=== PATIENT | male | born 1965 | race Caucasian/White ===

== ENCOUNTER → 2022-06-30 16:34 | Outpatient (CLI) | payer OTHER, SELFPAY ==
--- NOTE | 2022-06-30 16:38 | DI.RAD.S_ITS ---
PROCEDURE: XR KUB INDICATIONS: Ureteral calculus TECHNIQUE: One view of the abdomen acquired. COMPARISON: None. FINDINGS: Surgical changes and devices: None. Bowel: Bowel gas pattern is normal. Soft tissues: 9 mm calcification is seen projecting over the inferior pole of the right kidney. Visualized solid organ contours appear normal in size. Bones: No suspicious bony lesions. Mild degenerative changes are seen in the spine. IMPRESSION: Oval 9 mm calcification is seen projecting over the inferior pole of the right kidney. Approved by: Parth Shore M.D. on 06/30/2022 at 17:14
== END ==
PROVIDERS: Referring Provider Urology; Visit Provider Urology
DX: N20.0 Calculus of kidney (principal)
CPT/HCPCS: 74018

== ENCOUNTER → 2022-07-04 10:11 | Outpatient (CLI) | payer OTHER, SELFPAY ==
--- NOTE | 2022-07-04 10:13 | DI.RAD.S_ITS ---
PROCEDURE: XR KUB INDICATIONS: Kidney stone TECHNIQUE: One view of the abdomen acquired. COMPARISON: [facility], CR, XR KUB, 06/30/2022, 16:39. FINDINGS: Surgical changes and devices: None. Bowel: Bowel gas pattern is normal. Soft tissues: There is a 9 mm stone in the inferior pole of the right kidney, unchanged. No definitive ureteral stones. Visualized solid organ contours appear normal in size. Bones: No suspicious bony lesions. IMPRESSION: A 9 mm stone in right kidney. Dictated by: Remington Lemons M.D. on 07/04/2022 at 16:22 Approved by: Remington Lemons M.D. on 07/04/2022 at 16:27
== END ==
PROVIDERS: Referring Provider Urology; Visit Provider Urology
DX: N20.0 Calculus of kidney (principal); R39.9 Unspecified symptoms and signs involving the genitourinary system; R10.32 Left lower quadrant pain; R30.0 Dysuria
CPT/HCPCS: 74018; 81002; 99214

== ENCOUNTER → 2022-07-26 08:30 | Outpatient (CLI) | payer OTHER, SELFPAY ==
[2022-07-29 11:41] LABS: Ca oxalate dihydrate 70 % (.); Ca oxalate monohydr 30 % (.); Size 3x3 mm (.)
== END ==
PROVIDERS: PCP Urology; Visit Provider Urology
DX: N20.2 Calculus of kidney with calculus of ureter (principal); R39.9 Unspecified symptoms and signs involving the genitourinary system
CPT/HCPCS: 81002; 82365; 99214

== ENCOUNTER 2022-08-22 11:12 | Day surgery (SDC) | payer OTHER, SELFPAY ==
[2022-08-21 07:56] VITALS: BMI 38.4
[2022-08-22] VITALS (15 sets, daily range): BP systolic 158–187; BP diastolic 84–109; PULSE 51–76; RESP 11–22; TEMP 36.1–36.4; O2SAT 94–98; BMI 38.4
--- NOTE | 2022-08-22 11:51 | PM.PREOP ---
Pre-operative Note COVID-19 COVID-19 status: Not tested Criteria for continued procedure: Delay expected to result in less-positive ultimate med/surg outcome and Non-surgical alternatives not available or appropriate per current SOC Interval Note History & Physical reviewed/Exam performed by Physician: Yes Changes to H&P: No
[2022-08-22] MEDS: CEFAZOLIN 2 GM/100 ML PREMIX 100 ML IV (12:54)
--- NOTE | 2022-08-22 13:26 | SUR.OPER ---
Lithotomy on padded [facility] bed, head on pillow, arms at side padded with gel. Legs secured in stirrups.
--- NOTE | 2022-08-22 13:51 | PM.OP.1 ---
Procedure & Clinicians Procedure: Right extracorporeal shockwave lithotripsy with right ureteral stent placement Same procedure as scheduled: Yes Indications: This 56-year-old male originally presented with a left ureteral calculus. This is passed he subsequently was discovered to have a large right renal calculus and presents this time for right extracorporeal shockwave lithotripsy and right stent placement. Surgeon: Khoa Miller Click Yes if Unassisted: Yes Anesthesia Type: General Operative Notes Findings: Urethral meatus is normal, urethra is normal along its length with normal mucosa. The sphincter is well coapted. The prostate shows moderate obstructive character with no bulging into the bladder of the right left ureteral orifice in normal position with clear efflux. There were no other abnormalities noted within the bladder. Stone was noted to be in the right renal pelvis a 7 [place]i by multi length stent was left in place without a string in the right collecting system. The stone received 2000 shocks at level 7 and appeared to fragment well there were no other abnormalities or significant findings noted. Closure Type: not applicable Specimen(s): none sent Applied: other (Seven [place]i by multi length ureteral stent left in the right collecting system without a string) Estimated Blood Loss (mL): 0 Blood products transfused: none Procedure in detail: Procedure in detail: After informed consent was obtained, the patient was identified and brought to the operating room he was then placed in the supine position on the Lithotripter were anesthesia was induced to maintained. Ensuring an adequate level of anesthesia the patient was transitioned to the lithotomy position. Once within the lithotomy position the patient was prepped, draped, prepared for Transurethral procedure after prepping draping and ensuring an adequate level of anesthesia and after time-out a 22 [place]i cystoscope was passed through the urethral prostate and into the bladder under direct patient's cystoscopy was performed. The right ureteral orifice was identified and guidewire passed up into the collecting system under fluoroscopic visualization. Stent was then passed over the wire up into the collecting system where it was positioned with fluoroscopic visualization in the bladder under direct vision the wire was removed. The grasping forceps was inserted and the stent was grasped and the nylon harness removed. The stone was then targeted by the imaging system and shockwave delivered at level 7 with periodic reimaging and re localization to ensure maximal energy delivery to the stone at 2000 shocks the stone appeared well fragmented and the shockwave head was rotated out and fluoroscopy performed this confirmed fragmentation of the stone. At this point the patient was awakened having tolerated the procedure well he was transferred to the postanesthesia care unit for recovery. He will be discharged to home straining his urine and saving any fragments to bring back to follow-up. Complications: none Post-operative Condition: stable Disposition: PACU Plan for aftercare: Patient to be discharged to home straining his urine follow-up my office in approximately 14 days with a KUB.
[2022-08-22] MEDS: OXYBUTYNIN 5 MG TABLET PO (14:03)
[2022-08-22] MEDS: ACETAMINOPHEN 325 MG TABLET 650 MG PO (14:03)
[2022-08-22] MEDS: PHENAZOPYRIDINE 100 MG TABLET 200 MG PO (14:03)
[2022-08-22] MEDS: ONDANSETRON 4 MG/2 ML INJ IV (14:21)
[2022-08-22] MEDS: HYDRALAZINE 20 MG/ML VIAL 5 MG IV (14:21)
--- NOTE | 2022-08-22 14:22 | SUR.PHASEI ---
Albert Ybarra [employer]IM TURNING FINISHER at bedside. See orders for BP medication. Goal discharge SBP less than 100.
[2022-08-22] MEDS: fentaNYL 100 MCG/2 ML INJ IV ×2 (14:31→14:38)
--- NOTE | 2022-08-22 14:54 | SUR.PHASEI ---
Jj Ybarra DATA MINER in OR #4 notified of post op shaking. See new order.
[2022-08-22] MEDS: MEPERIDINE 50 MG/ML INJ 12.5 MG IV (15:06)
--- NOTE | 2022-08-22 15:26 | SUR.PHASEI ---
Pt calm and relaxed, shaking stopped and pain is better. it feels like everything has calmed down
[2022-08-22] MEDS: LACTATED RINGERS 1,000 ML 21 ML IV (15:31)
== END 2022-08-22 16:00 | disposition home or self-care (01) ==
PROVIDERS: PCP Physician Assistant; Referring Provider Urology; Visit Provider Urology
PROC: (CPT 50590; principal; 2022-08-22 12:30)
PROC: (CPT 50590; 2022-08-22 12:30)
DX: N20.0 Calculus of kidney (principal); Z87.442 Personal history of urinary calculi; G47.30 Sleep apnea, unspecified
CPT/HCPCS: 50590; 52332; 82962; J0360; J0690; J2175; J2250; J2405; J2704; J3010

== ENCOUNTER → 2022-09-03 10:32 | Outpatient (CLI) | payer OTHER, SELFPAY ==
--- NOTE | 2022-09-03 10:34 | DI.RAD.S_ITS ---
PROCEDURE: XR KUB INDICATIONS: Kidney stone TECHNIQUE: One view of the abdomen acquired. COMPARISON: [facility], CR, XR KUB, 06/30/2022, 16:39. [facility], CR, XR KUB, 07/04/2022, 10:13. FINDINGS: Surgical changes and devices: A right-sided double-J stent is seen. The ends of the stent are seen in the expected locations. Bowel: Bowel gas pattern is normal. Soft tissues: Faintly visualized stone fragments can be seen at the inferior pole of the right kidney that measure up to 8 mm. No stone fragments can be seen along the stent. Bones: No suspicious bony lesions. IMPRESSION: Right-sided ureteral stent, without fragments seen along the stent. Nonobstructing right kidney stone fragments faintly seen that measure up to 8 mm. Dictated by: Gerald Manjarrez M.D. on 09/03/2022 at 11:31 Approved by: Gerald Manjarrez M.D. on 09/03/2022 at 11:32
== END ==
PROVIDERS: PCP Physician Assistant; Referring Provider Urology; Visit Provider Urology
DX: N20.2 Calculus of kidney with calculus of ureter (principal); Z96.0 Presence of urogenital implants
CPT/HCPCS: 74018

== ENCOUNTER → 2022-09-13 12:00 | Outpatient (CLI) | payer OTHER, SELFPAY ==
--- NOTE | 2022-09-13 12:00 | DI.RAD.S_ITS ---
PROCEDURE: XR KUB INDICATIONS: Kidney stone TECHNIQUE: One view of the abdomen acquired. COMPARISON: [facility], CR, XR KUB, 09/03/2022, 10:51. [facility], CR, XR KUB, 07/04/2022, 10:13. FINDINGS: A right ureteral stent is redemonstrated, similar in appearance to before. Small calcifications project over the inferior right kidney, not significantly changed. Bowel gas pattern is nonobstructive. IMPRESSION: A right ureteral stent is redemonstrated, similar in appearance to before. Small calcifications project over the inferior right kidney, not significantly changed. Dictated by: Parth Mckeon M.D. on 09/13/2022 at 16:04 Approved by: Parth Mckeon M.D. on 09/13/2022 at 16:07
== END ==
PROVIDERS: PCP Physician Assistant; Referring Provider Urology; Visit Provider Urology
DX: N20.0 Calculus of kidney (principal); Z96.0 Presence of urogenital implants; Z87.442 Personal history of urinary calculi
CPT/HCPCS: 74018

== ENCOUNTER → 2022-09-18 15:14 | Outpatient (CLI) | payer OTHER, SELFPAY ==
[2022-09-21 23:25] LABS: Ca oxalate monohydr 100 % (.); Size 3x2 mm (.)
== END ==
PROVIDERS: PCP Physician Assistant; Visit Provider Urology
DX: N20.0 Calculus of kidney (principal); N20.1 Calculus of ureter; R39.9 Unspecified symptoms and signs involving the genitourinary system; Z98.890 Other specified postprocedural states; Z87.442 Personal history of urinary calculi
CPT/HCPCS: 82365; 87086

== ENCOUNTER 2022-09-25 07:12 | Inpatient (IN) | payer OTHER, SELFPAY ==
[2022-09-25] VITALS (18 sets, daily range): BP systolic 140–193; BP diastolic 74–108; PULSE 59–82; RESP 16–18; TEMP 36.5–36.9; O2SAT 92–95; BMI 32.5
[2022-09-25] MEDS: HYDROMORPHONE 1 MG INJ IV (07:29)
[2022-09-25 07:32] LABS: Add Manual Diff / Slide Review NO; Basophils Absolute Auto 100 /uL (0-100); Basophils Percent Auto 1.2 % (0-2); Eosinophils Absolute Auto 300 /uL (0-450); Eosinophils Percent Auto 3.6 % (2-4); Hematocrit 38.3 % (41-53); Hemoglobin 12.9 g/dL (13.5-17.5); Lymphocytes Absolute Auto 1600 /uL (1100-4500); Lymphocytes Percent Auto 19.9 % (25-40); Mean Corpuscular HGB Conc 33.7 % (30-36); Mean Corpuscular Hemoglobin 30.1 PG (26-34); Mean Corpuscular Volume 89.4 fL (80-100); Monocytes Absolute Auto 800 /uL (0-900); Monocytes Percent Auto 9.4 % (3-14); Neutrophils Absolute Auto 5300 /uL (1500-7000); Neutrophils Percent Auto 65.9 % (50-75); Platelet Count 290 X10^3/uL (150-400); Red Blood Cell Count 4.29 X10^6/uL (4.5-5.9); Red Cell Distribution Width 13.5 % (11.6-14.8)
--- NOTE | 2022-09-25 07:32 | ED.GENADULT ---
HPI - General Adult General Chief complaint: Urogenital-Male Stated complaint: KIDNEY STONE Time Seen by Provider: 09/25/22 07:16 Source: patient Mode of arrival: Ambulatory Limitations: no limitations History of Present Illness HPI narrative: Patient is a 48-year-old male. Has a known history of multiple kidney stones. Actually has a right-sided ureteral stent that has been in place for the past several weeks. Has being treated by Dr. Miller with Urology. On 2 different occasions he was scheduled to have the stent removed however both times it has been delayed for various issues. The last time it was because there was concern that he had a urinary tract infection. A turned out that he actually had influenza. He is now not scheduled to have it removed for the next couple weeks. Has had continued discomfort and hematuria since having the stent placed however last evening his symptoms became much worse. It is right-sided. He is still urinating. No fevers. Nausea but no vomiting. He states that this has happened to him in the past with previous stents when the stent has become occluded. He is on Pyridium and tamsulosin. Is not currently on antibiotics Related Data Previous Rx's Medication Instructions Recorded tamsulosin 0.4 mg capsule 0.8 mg PO DAILY Lower urinary 07/04/22 tract symptoms #60 caps phenazopyridine 200 mg tablet 200 mg PO TID PRN pain #30 tabs 09/05/22 (Pyridium) Allergies Allergy/AdvReac Type Severity Reaction Status Date / Time No Known Drug Allergies Allergy Verified 09/18/22 14:40 Review of Systems Constitutional Constitutional: Reports system reviewed and no additional complaints, except as documented Cardiovascular Cardiovascular: Reports system reviewed and no additional complaints, except as documented Respiratory Respiratory: Reports system reviewed and no additional complaints, except as documented Gastrointestinal Gastrointestinal: Reports system reviewed and no additional complaints, except as documented Genitourinary Genitourinary: Reports system reviewed and no additional complaints, except as documented Integumentary/Breasts Skin/Breast: Reports system reviewed and no additional complaints, except as documented Hematologic/Lymphatic On Anticoagulants: No Patient History Medical History History of kidney stones Kidney stones Lower urinary tract symptoms Right renal stone Sleep apnea Ureteral calculus Surgical History (Updated 08/21/22 @ 08:20 by Amina Torres RN) History of lithotripsy (2011) History of ureter stent Family History Grandfather Cancer Social History marital status: number of children: 2 household members: spouse Smoking Status: Former smoker alcohol intake: current Type(s) of exercise: walking frequency: 1-2 times per week Smoking Status: Never smoker alcohol intake frequency: holidays/special occasions only Exam Initial Vital Signs Initial Vital Signs: Vital Signs Blood Pressure 193/108 H 09/25/22 07:18 Const General: cooperative HENMT Head: normal to inspection and normocephalic Resp Effort & Inspection: normal respiratory effort Auscultation: clear to auscultation bilaterally Cardio Rate: regular rate Rhythm: regular rhythm GI Inspection: normal to inspection Palpation: No firm and tender Back/Spine/Pelvis Back: CVA tenderness right Skin General: no rashes or lesions noted Neuro General: patient alert, patient awake and moves all extremities Extrem General: capillary refill normal Course Orders Ordered: ED Orders 09/25/22 09:32 Urinalysis and Microscopic Stat Urine Culture Stat 09/25/22 11:21 COVID19 -Nasal RAPID Stat 09/25/22 15:31 Consult to Urology Stat 09/26/22 05:00 BMP [Basic Metabolic Panel] DAILY CBC Auto Diff [Complete Blood Count AUTO DIFF] DAILY 09/27/22 05:00 BMP [Basic Metabolic Panel] DAILY CBC Auto Diff [Complete Blood Count AUTO DIFF] DAILY 09/28/22 05:00 BMP [Basic Metabolic Panel] DAILY CBC Auto Diff [Complete Blood Count AUTO DIFF] DAILY Acetaminophen (Acetaminophen 325 Mg Tablet) 650 mg PO Q6H PRN PRN Reason: Fever/Mild Pain (1-3) Last Admin: 09/25/22 16:23 Dose: 650 mg Documented By: RL Sodium Chloride (Normal Saline 0.9%) 1,000 mls @ 125 mls/hr IV BOLUS ONE Stop: 09/25/22 22:01 Last Admin: 09/25/22 14:17 Dose: 125 mls/hr Documented By: CTS Ceftriaxone Sodium 1,000 mg/ (Sodium Chloride) 100 mls @ 200 mls/hr IV Q24H SAMANTHA Stop: 09/29/22 08:59 Sodium Chloride (Normal Saline 0.9%) 1,000 mls @ 100 mls/hr IV CONT SAMANTHA Stop: 09/26/22 03:44 Influenza Virus Vaccine (Influenza Vaccine Qiv 0.5 Ml Syringe) 0.5 ml IM .ONCE ONE Stop: 09/26/22 15:01 Ketorolac Tromethamine (Ketorolac 30 Mg/Ml Vial) 30 mg IV Q6H [facility] Stop: 09/30/22 15:33 Last Admin: 09/25/22 17:32 Dose: 30 mg Documented By: JACQUELINE Melatonin (Melatonin 3 Mg Tablet) 6 mg PO BEDTIME PRN PRN Reason: Insomnia Naloxone HCl (Naloxone 0.4 Mg/Ml Vial) 0.2 mg IV Q2MIN PRN PRN Reason: Opiate Reversal Phenazopyridine HCl (Phenazopyridine 100 Mg Tablet) 200 mg PO TID PRN PRN Reason: Bladder irritation Polyethylene Glycol (Polyethylene Glycol 3350 17 Gm Powd.Pack) 17 gm PO DAILY PRN PRN Reason: Constipation Sennosides (Sennosides 8.6 Mg Tablet) 8.6 mg PO BID PRN PRN Reason: Constipation Tamsulosin HCl (Tamsulosin 0.4 Mg Capsule) 0.8 mg PO BEDTIME SAMANTHA Discontinued Medications Acetaminophen (Acetaminophen 325 Mg Tablet) 975 mg PO NOW ONE Stop: 09/25/22 15:38 Last Admin: 09/25/22 16:50 Dose: Not Given Documented By: ELTON Hydromorphone HCl (Hydromorphone 1 Mg Inj) 1 mg IV NOW ONE Stop: 09/25/22 07:23 Last Admin: 09/25/22 07:29 Dose: 1 mg Documented By: AT Ceftriaxone Sodium 1,000 mg/ (Sodium Chloride) 100 mls @ 200 mls/hr IV NOW ONE Stop: 09/25/22 11:00 Last Infusion: 09/25/22 11:49 Dose: 0 mls/hr Documented By: Admin: 09/25/22 11:15 Dose: 200 mls/hr Documented By: HARSHA Ketorolac Tromethamine (Ketorolac 30 Mg/Ml Vial) 30 mg IV NOW ONE Stop: 09/25/22 09:00 Last Admin: 09/25/22 09:03 Dose: 30 mg Documented By: HARSHA Phenazopyridine HCl (Phenazopyridine 100 Mg Tablet) 100 mg PO NOW ONE Stop: 09/25/22 13:56 Last Admin: 09/25/22 14:12 Dose: 100 mg Documented By: CTS Vital Signs Vital signs: Vital Signs - 8 hr 09/25/22 11:00 09/25/22 11:30 09/25/22 12:00 Pulse Rate 64 60 70 Pulse Oximetry 94 94 93 09/25/22 12:30 09/25/22 13:00 09/25/22 13:30 Pulse Rate 62 66 74 Pulse Oximetry 93 93 Medical Decision Making Medical Records Medical records reviewed: Yes I reviewed the patient's medical records. Lab Data Lab results reviewed: Yes I reviewed the patient's lab results. 09/25/22 07:20 09/25/22 07:20 Labs: Lab Results 09/25/22 09/25/22 09/25/22 Range/Units 07:20 07:20 07:20 WBC 8.0 (4.5-11.0) X10^3/uL RBC 4.29 L (4.5-5.9) X10^6/uL Hgb 12.9 L (13.5-17.5) g/dL Hct 38.3 L (41-53) % MCV 89.4 (80-100) fL MCH 30.1 (26-34) PG MCHC 33.7 (30-36) % RDW 13.5 (11.6-14.8) % Plt Count 290 (150-400) X10^3/uL Neut % (Auto) 65.9 (50-75) % Lymph % (Auto) 19.9 L (25-40) % [place] % (Auto) 9.4 (3-14) % Eos % (Auto) 3.6 (2-4) % Baso % (Auto) 1.2 (0-2) % Neut # (Auto) 5300 (1248-4145) /uL Lymph # (Auto) 1600 (1716-9607) /uL [place] # (Auto) 800 (0-900) /uL Eos # (Auto) 300 (0-450) /uL Baso # (Auto) 100 (0-100) /uL Sodium 137 (137-145) mmol/L Potassium 3.5 (3.4-5.1) mmol/L Chloride 103 (98-107) mmol/L Carbon Dioxide 29 (22-32) mmol/L BUN 18 (9-20) mg/dL Creatinine 0.98 (0.66-1.25) mg/dL Estimated GFR > 60 (>60) mL/min BUN/Creatinine Ratio 18.4 (6-22) Glucose 104 H (70-100) mg/dL Calcium 8.6 (8.4-10.2) mg/dL Magnesium 2.2 (1.6-2.3) mg/dL Urine Color Urine Appearance Urine pH (4.5-8.0) Ur Specific [place] (1.000-1.035) Urine Protein (Negative) Urine Glucose (UA) (Negative) g/dL Urine Ketones (NEGATIVE) Urine Occult Blood (Negative) Urine Nitrate (Negative) Urine Bilirubin (NEGATIVE) Urine Urobilinogen (0.2) E.U./dL Ur Leukocyte Esterase (NEGATIVE) Urine RBC (0-5/HPF) Urine WBC (0-5/HPF) Amorphous Sediment Urine Bacteria (None) Ur Culture Indicated? SARS-CoV-2 (PCR) (Negative) 09/25/22 09/25/22 Range/Units 09:32 11:21 WBC (4.5-11.0) X10^3/uL RBC (4.5-5.9) X10^6/uL Hgb (13.5-17.5) g/dL Hct (41-53) % MCV (80-100) fL MCH (26-34) PG MCHC (30-36) % RDW (11.6-14.8) % Plt Count (150-400) X10^3/uL Neut % (Auto) (50-75) % Lymph % (Auto) (25-40) % [place] % (Auto) (3-14) % Eos % (Auto) (2-4) % Baso % (Auto) (0-2) % Neut # (Auto) (9815-1121) /uL Lymph # (Auto) (2728-3985) /uL [place] # (Auto) (0-900) /uL Eos # (Auto) (0-450) /uL Baso # (Auto) (0-100) /uL Sodium (137-145) mmol/L Potassium (3.4-5.1) mmol/L Chloride (98-107) mmol/L Carbon Dioxide (22-32) mmol/L BUN (9-20) mg/dL Creatinine (0.66-1.25) mg/dL Estimated GFR (>60) mL/min BUN/Creatinine Ratio (6-22) Glucose (70-100) mg/dL Calcium (8.4-10.2) mg/dL Magnesium (1.6-2.3) mg/dL Urine Color [place] Urine Appearance Cloudy Urine pH 7.0 (4.5-8.0) Ur Specific [place] 1.010 (1.000-1.035) Urine Protein 3+ H (Negative) Urine Glucose (UA) Trace H (Negative) g/dL Urine Ketones Negative (NEGATIVE) Urine Occult Blood 3+ H (Negative) Urine Nitrate Positive H (Negative) Urine Bilirubin Negative (NEGATIVE) Urine Urobilinogen 4.0 H (0.2) E.U./dL Ur Leukocyte Esterase 1+ H (NEGATIVE) Urine RBC 10-30/hpf H (0-5/HPF) Urine WBC 5-10/hpf H (0-5/HPF) Amorphous Sediment 1+ Urine Bacteria Occasional (0-1) (None) Ur Culture Indicated? Specimen cultured SARS-CoV-2 (PCR) Negative (Negative) Imaging Data CT scan - abdomen/pelvis: Radiologist's Impression: PROCEDURE:? CT KIDNEY URETER BLADDER (KUB) ? INDICATIONS:? R ureteral stent with increasing pain ? TECHNIQUE:? Axial sections were acquired from the lung bases to the pubic symphysis.? Coronal and sagittal reformats were performed.? For radiation dose reduction, the following was used: ?automated exposure control, adjustment of mA and/or kV according to patient size.? ? COMPARISON:? None. ? FINDINGS:? Image quality:? Excellent.? ? Lung bases:? 4mm juxtapleural nodule in the right lower lobe, probably intrapulmonary lymph node. Heart:? No significant findings. ? URINARY: Right Kidney:? Right-sided nephroureteral stent terminates in the right renal pelvis and urinary bladder.? There is some mild right-sided pelvocaliectasis.? Small burden of punctate, nonobstructing stones.? No perinephric fat stranding.? Mild periureteral fat stranding. Right Ureter:? No hydroureter.? ? Left Kidney: ? No stones or hydronephrosis. Left Ureter:? No hydroureter.? ? Bladder:? Normal wall thickness. No stones. ? ? ? ABDOMEN: Liver:? Fluid attenuating cysts.? ? Gallbladder:? Unremarkable.? ? Biliary ducts:? Unremarkable.? ? Pancreas:? Unremarkable.? ? Spleen:? Calcified granuloma. Adrenal Glands:? Unremarkable.? ? ? Stomach and Bowel:? Stomach, small bowel loops, and colon are unremarkable.? Peritoneum:? No abnormal intraperitoneal fluid.? No free air.? ? Ventral Wall: ? No hernia.? Abdominal Nodes:? No enlarged retroperitoneal or mesenteric lymph nodes.? Vessels:? Aorta and inferior vena cava are normal in size.? ? PELVIS: Pelvic Organs:? Unremarkable.? ? Pelvic Nodes: Unremarkable. Miscellaneous: No inguinal hernias are seen.? Along the left side of the puborectalis sling, there is a hyperattenuating lesion measuring 1.3 x 1.8 centimeter (). ? Bones:? Unremarkable. ? IMPRESSION:? ? 1. Appropriately positioned right-sided nephroureteral stent.? There is mild right-sided pelvocaliectasis, which may indicate stent obstruction. 2. Small burden of punctate, nonobstructing right-sided renal stones. 3. Along the left side of the puborectalis sling, there is a hyperattenuating lesion measuring 1.3 x 1.8 centimeter (). Findings are an atypical position for a worrisome mass, but further evaluation with nonurgent MRI of the pelvis with contrast to be considered for confirmation and characterization.? MDM Narrative Medical decision making narrative: After pain medications his symptoms have improved. His kidney function is unremarkable. Urinalysis is nitrite positive which is new from prior. He was given antibiotics. Patient is not febrile nor tachycardic. The CT scan does show dilation of the right-sided kidney and given his history and stent placement there is concern about a stent occlusion. I did discuss the case with Dr. Arias on-call for Urology who stated that the patient most likely will need the stent removed and a new 1 placed. There is currently issues with the operating room at this facility and the ability to sterilize instruments. Multiple hours were spent trying to logistically set up whether not the patient could be admitted at this facility are sent to another facility. Dr. Arias strongly recommended that the patient be transferred. I did discuss the case with the Urology Department at [facility] who stated that the patient did not to be transferred to their facility. They recommended a removing his current stent in treating his infection. I did discuss this with Dr. Arias who stated that this would be an appropriate course of action if there was the ability to replace a stent if needed however that was the concern about keeping him here. We then attempted to contact [facility] who have [place], [facility], [facility] in the [facility]. All of these facilities have no beds available for transfer. I once again contacted Dr. Arias to discuss the lack of ability to transfer. It appears that the hospital is able to send the instruments for sterilization which would be available later this evening and definite by tomorrow morning. The plan to be is to admit the patient to the medicine service. If the patient becomes septic this evening or if his symptoms worsen then a more urgent stent removal and replacement will take place. If not this will be done tomorrow morning. I did discuss all this with the patient and his . They expressed understanding. We also discussed the incidental finding of the mass noted on the CT scan today. He expressed understanding of this and will eventually need follow-up with his primary doctor. Discharge Plan Departure Patient Disposition: Admitted As Inpatient Clinical Impression: Urinary tract infection, Occlusion of ureteral stent Admit Date/Time: 09/25/22 16:05 Admit Provider: Carlos Dumas
--- NOTE | 2022-09-25 07:33 | DI.CT.S_ITS ---
PROCEDURE: CT KIDNEY URETER BLADDER (KUB) INDICATIONS: R ureteral stent with increasing pain TECHNIQUE: Axial sections were acquired from the lung bases to the pubic symphysis. Coronal and sagittal reformats were performed. For radiation dose reduction, the following was used: automated exposure control, adjustment of mA and/or kV according to patient size. COMPARISON: None. FINDINGS: Image quality: Excellent. Lung bases: 4mm juxtapleural nodule in the right lower lobe, probably intrapulmonary lymph node. Heart: No significant findings. URINARY: Right Kidney: Right-sided nephroureteral stent terminates in the right renal pelvis and urinary bladder. There is some mild right-sided pelvocaliectasis. Small burden of punctate, nonobstructing stones. No perinephric fat stranding. Mild periureteral fat stranding. Right Ureter: No hydroureter. Left Kidney: No stones or hydronephrosis. Left Ureter: No hydroureter. Bladder: Normal wall thickness. No stones. ABDOMEN: Liver: Fluid attenuating cysts. Gallbladder: Unremarkable. Biliary ducts: Unremarkable. Pancreas: Unremarkable. Spleen: Calcified granuloma. Adrenal Glands: Unremarkable. Stomach and Bowel: Stomach, small bowel loops, and colon are unremarkable. Peritoneum: No abnormal intraperitoneal fluid. No free air. Ventral Wall: No hernia. Abdominal Nodes: No enlarged retroperitoneal or mesenteric lymph nodes. Vessels: Aorta and inferior vena cava are normal in size. PELVIS: Pelvic Organs: Unremarkable. Pelvic Nodes: Unremarkable. Miscellaneous: No inguinal hernias are seen. Along the left side of the puborectalis sling, there is a hyperattenuating lesion measuring 1.3 x 1.8 centimeter (/). Bones: Unremarkable. IMPRESSION: 1. Appropriately positioned right-sided nephroureteral stent. There is mild right-sided pelvocaliectasis, which may indicate stent obstruction. 2. Small burden of punctate, nonobstructing right-sided renal stones. 3. Along the left side of the puborectalis sling, there is a hyperattenuating lesion measuring 1.3 x 1.8 centimeter (/). Findings are an atypical position for a worrisome mass, but further evaluation with nonurgent MRI of the pelvis with contrast to be considered for confirmation and characterization. Dictated by: Gurinder Smallwood M.D. on 09/25/2022 at 8:07 Approved by: Gurinder Smallwood M.D. on 09/25/2022 at 8:18
[2022-09-25 07:50] LABS: BUN Creatinine Ratio 18.4 (6-22); Blood Urea Nitrogen 18 mg/dL (9-20); Calcium 8.6 mg/dL (8.4-10.2); Carbon Dioxide 29 mmol/L (22-32); Chloride 103 mmol/L (98-107); Estimated Glomerular Filt Rate > 60 mL/min (>60); Glucose 104 mg/dL (70-100); HEMOLYSIS < 15 (0-50); Potassium 3.5 mmol/L (3.4-5.1); Sodium 137 mmol/L (137-145)
[2022-09-25] MEDS: KETOROLAC 30 MG/ML VIAL IV ×3 (09:03→22:35)
[2022-09-25 09:43] LABS: Appearance Urine UA CLOUDY; Bilirubin Urine UA NEGATIVE (NEGATIVE); Color Urine UA ORANGE; Glucose Urine UA TRACE g/dL (Negative); Ketones Urine UA NEGATIVE (NEGATIVE); Leukocyte Esterase Urine UA 1+ (NEGATIVE); Nitrite Urine UA POSITIVE (Negative); Occult Blood Urine UA 3+ (Negative); Protein Urine UA 3+ (Negative)
[2022-09-25 09:52] LABS: Amorphous Sediment Urine 1+; Bacteria Urine Occasional (0-1); Culture Indicated Urine Specimen Cultured; RBC Urine 10-30/HPF (0-5/HPF); WBC Urine 5-10/HPF (0-5/HPF)
[2022-09-25] MEDS: cefTRIAXone 1,000 MG in SODIUM CHLORIDE 0.9% 100 ML 200 MG IV (11:15)
[2022-09-25 11:43] LABS: COVID19 -Nasal RAPID Negative (Negative)
[2022-09-25] MEDS: PHENAZOPYRIDINE 100 MG TABLET PO (14:12)
[2022-09-25] MEDS: SODIUM CHLORIDE 0.9% 1,000 ML 125 ML IV (14:17)
--- NOTE | 2022-09-25 15:13 | PC.NURSE ---
called [facility], [facility], [facility] and [facility] all said no, sent over facesheets. waitlisted at [facility].
--- NOTE | 2022-09-25 15:43 | P.HP_ITS ---
History of Present Illness History of Present Illness Date Patient Seen: 09/25/22 Chief complaint: KIDNEY STONE Narrative: Glynn Waddell is a 56yo M with PMH of recurrent kidney stones with current right-sided ureteral stent and recent lithotripsy with Dr. Miller on 08/22/22 who is presenting with right sided flank pain, hematuria, nausea and UTI. Patient has been set to have stent removed as outpatient with Dr. Miller but it kept getting delayed for various reasons. He then developed worsening right flank pain this morning with nausea but no vomiting so came to the ED. Dr. Arias urology consulted in ED and will take for stent removal in AM. UA showed pyuria so started on rocephin. Currently patient's pain is well-controlled with the IV toradol he has received. He denies NV, CP, SOB, abd pain or diarrhea. Patient History Medical History History of kidney stones Kidney stones Lower urinary tract symptoms Right renal stone Sleep apnea Ureteral calculus Surgical History (Updated 08/21/22 @ 08:20 by Amina Torres RN) History of lithotripsy (2011) History of ureter stent Family & Social History Family History Grandfather Cancer Social History: household members spouse Safety & Behavioral: Feels Safe in Current Yes Environment Been Physically Hurt or No Threatened By a Person Tobacco & Substance use: Smoking Status Never smoker alcohol intake frequency holiday/special occasion Meds Home Medications and Allergies Home Medications Medication Instructions Recorded Confirmed Type tamsulosin 0.4 mg capsule 0.8 mg PO DAILY Lower urinary 07/04/22 09/25/22 Rx tract symptoms #60 caps phenazopyridine 200 mg tablet 200 mg PO TID PRN pain #30 tabs 09/05/22 09/25/22 Rx (Pyridium) Allergies Allergy/AdvReac Type Severity Reaction Status Date / Time No Known Drug Allergies Allergy Verified 09/18/22 14:40 Review of Systems Review of Systems Narrative: All other systems reviewed with the patient and are negative unless otherwise stated. Exam Vital Signs (past 8 hours): - 09/25/22 07:49 09/25/22 07:49 09/25/22 07:55 Pulse Rate 66 63 Blood Pressure 165/83 H Pulse Oximetry 93 94 Oxygen Delivery Method 09/25/22 07:55 09/25/22 08:00 09/25/22 08:00 Pulse Rate 59 L Blood Pressure 163/83 H 155/88 H Pulse Oximetry 92 Oxygen Delivery Method Room Air 09/25/22 08:30 09/25/22 08:30 09/25/22 11:00 Pulse Rate 69 64 Blood Pressure 140/74 Pulse Oximetry 93 94 Oxygen Delivery Method Room Air 09/25/22 11:30 09/25/22 12:00 09/25/22 12:30 Pulse Rate 60 70 62 Blood Pressure Pulse Oximetry 94 93 Oxygen Delivery Method 09/25/22 13:00 09/25/22 13:30 Pulse Rate 66 74 Blood Pressure Pulse Oximetry 93 93 Oxygen Delivery Method Oxygen Delivery Method Room Air Narrative Exam Narrative: GEN: no acute distress HEENT: moist mucous membranes, PERRL NECK: trachea midline, no JVD CV: regular rate and rhythm, no murmurs PULM: clear bilaterally ABD: soft, nontender, protuberant, no organomegaly EXT: warm and well perfused with no edema NEURO: awake, alert, oriented, no focal deficits Objective Labs 09/25/22 07:20 09/25/22 07:20 Labs: Laboratory Results - last 24 hr 09/25/22 09/25/22 09/25/22 07:20 07:20 09:32 WBC 8.0 RBC 4.29 L Hgb 12.9 L Hct 38.3 L MCV 89.4 MCH 30.1 MCHC 33.7 RDW 13.5 Plt Count 290 Neut % (Auto) 65.9 Lymph % (Auto) 19.9 L [place] % (Auto) 9.4 Eos % (Auto) 3.6 Baso % (Auto) 1.2 Neut # (Auto) 5300 Lymph # (Auto) 1600 [place] # (Auto) 800 Eos # (Auto) 300 Baso # (Auto) 100 Sodium 137 Potassium 3.5 Chloride 103 Carbon Dioxide 29 BUN 18 Creatinine 0.98 Estimated GFR > 60 BUN/Creatinine Ratio 18.4 Glucose 104 H Calcium 8.6 Urine Color [place] Urine Appearance Cloudy Urine pH 7.0 Ur Specific [place] 1.010 Urine Protein 3+ H Urine Glucose (UA) Trace H Urine Ketones Negative Urine Occult Blood 3+ H Urine Nitrate Positive H Urine Bilirubin Negative Urine Urobilinogen 4.0 H Ur Leukocyte Esterase 1+ H Urine RBC 10-30/hpf H Urine WBC 5-10/hpf H Amorphous Sediment 1+ Urine Bacteria Occasional (0-1) Ur Culture Indicated? Specimen cultured SARS-CoV-2 (PCR) 09/25/22 11:21 WBC RBC Hgb Hct MCV MCH MCHC RDW Plt Count Neut % (Auto) Lymph % (Auto) [place] % (Auto) Eos % (Auto) Baso % (Auto) Neut # (Auto) Lymph # (Auto) [place] # (Auto) Eos # (Auto) Baso # (Auto) Sodium Potassium Chloride Carbon Dioxide BUN Creatinine Estimated GFR BUN/Creatinine Ratio Glucose Calcium Urine Color Urine Appearance Urine pH Ur Specific [place] Urine Protein Urine Glucose (UA) Urine Ketones Urine Occult Blood Urine Nitrate Urine Bilirubin Urine Urobilinogen Ur Leukocyte Esterase Urine RBC Urine WBC Amorphous Sed[place] Urine Bacteria Ur Culture Indicated? SARS-CoV-2 (PCR) Negative Assessment & Plan Assessment & Plan narrative: # UTI in setting of right-sided ureteral stent with possible stent obstruction -CT abd/pelvis shows right stent with pelvocaliectasis suggesting obstruction -Dr. Arias to take to OR on 09/26 for stent removal -UA with pyuria, hematuria -continue rocephin 1g daily -NPO at 10pm -f/u urine culture -continue flomax, toradol and AZO prn # recurrent kidney stones -patient notes kidney stones since age 17 -no hypercalcemic on labs, but will check PTH to rule hyperparathyroidism Code status is full code. COVID negative. DVT prophylaxis with SCDs. Proxy is spouse Samantha. I have reviewed home meds and used all available resources to reconcile the home meds. This patient will be admitted as inpatient and will require greater than 2 midnights of hospital time to treat UTI with right ureteral stent. Time Spent With Patient Critical Care time: I spent a total of [] minutes of critical care time on this patient's care today; this time is exclusive of procedural time.
[2022-09-25] MEDS: ACETAMINOPHEN 325 MG TABLET 650 MG PO (16:23)
[2022-09-25 17:02] LABS: Magnesium 2.2 mg/dL (1.6-2.3)
--- NOTE | 2022-09-25 17:34 | PC.NURSE ---
Pt arrived from ED at 1635, A&Ox4, c/o 3/10 pain to R flank. Lungs CTA, bowel sounds present, CMS intact throughout. Pt and oriented to call light and room.
[2022-09-25] MEDS: TAMSULOSIN 0.4 MG CAPSULE 0.8 MG PO (20:08)
[2022-09-25] MEDS: PHENAZOPYRIDINE 100 MG TABLET 200 MG PO (22:35)
[2022-09-25] MEDS: SODIUM CHLORIDE 0.9% 1,000 ML 100 ML IV (22:36)
[2022-09-26] VITALS (18 sets, daily range): BP systolic 117–169; BP diastolic 56–101; PULSE 18–111; RESP 11–20; TEMP 35.9–37.1; O2SAT 90–97; BMI 37.2
--- NOTE | 2022-09-26 | DI.RAD.S_ITS ---
PROCEDURE: XR ABDOMEN 1V INDICATIONS: CYSTO TECHNIQUE: Intraoperative fluoroscopic images acquired by the Urology service. COMPARISON: [facility], CT, CT KIDNEY URETER BLADDER (KUB), 09/25/2022, 7:35. FINDINGS: Multiple intraoperative fluoroscopic images of the right abdomen demonstrates cannulization of the right ureter and withdrawal of previously seen right ureteral stent. Contrast was injected and demonstrates opacification of the proximal right ureter and right renal pelvis. Mild dilatation. IMPRESSION: Intraoperative fluoroscopic support for retrograde cystography of the right renal collecting system. Please see procedural note for further details. Dictated by: Frantz Gore M.D. on 09/26/2022 at 9:34 Approved by: Frantz Gore M.D. on 09/26/2022 at 9:38
[2022-09-26] MEDS: KETOROLAC 30 MG/ML VIAL IV (05:01)
[2022-09-26 05:29] LABS: Add Manual Diff / Slide Review NO; Basophils Absolute Auto 0 /uL (0-100); Basophils Percent Auto 0.8 % (0-2); Eosinophils Absolute Auto 300 /uL (0-450); Eosinophils Percent Auto 5.1 % (2-4); Hematocrit 33.2 % (41-53); Hemoglobin 11.4 g/dL (13.5-17.5); Lymphocytes Absolute Auto 1200 /uL (1100-4500); Lymphocytes Percent Auto 21.6 % (25-40); Mean Corpuscular HGB Conc 34.3 % (30-36); Mean Corpuscular Hemoglobin 30.8 PG (26-34); Mean Corpuscular Volume 89.6 fL (80-100); Monocytes Absolute Auto 500 /uL (0-900); Monocytes Percent Auto 8.4 % (3-14); Neutrophils Absolute Auto 3600 /uL (1500-7000); Neutrophils Percent Auto 64.1 % (50-75); Platelet Count 249 X10^3/uL (150-400); Red Blood Cell Count 3.71 X10^6/uL (4.5-5.9); Red Cell Distribution Width 13.1 % (11.6-14.8); White Blood Cell Count 5.7 X10^3/uL (4.5-11.0)
[2022-09-26 05:51] LABS: BUN Creatinine Ratio 17.9 (6-22); Blood Urea Nitrogen 17 mg/dL (9-20); Calcium 8.2 mg/dL (8.4-10.2); Carbon Dioxide 28 mmol/L (22-32); Chloride 105 mmol/L (98-107); Estimated Glomerular Filt Rate > 60 mL/min (>60); Glucose 87 mg/dL (70-100); HEMOLYSIS < 15 (0-50); Potassium 3.6 mmol/L (3.4-5.1); Sodium 136 mmol/L (137-145)
--- NOTE | 2022-09-26 06:38 | PC.NURSE ---
Pt off floor at this time to OR.
[2022-09-26] MEDS: LACTATED RINGERS 1,000 ML 42 ML IV ×2 (06:50→09:36)
--- NOTE | 2022-09-26 06:55 | SUR.PREOP ---
Report received from JIM Diaz. Pt transferred to preop holding in bed. Glasses with pt.
--- NOTE | 2022-09-26 07:24 | PM.CN ---
History of Present Illness Consult details Date Patient Seen: 09/26/22 Time Patient Seen: 07:15 Chief complaint: KIDNEY STONE Reason for consult: UTI right pyelonephritis. Narrative: Glynn is a 56-year-old male who presented to the [facility] ED with complaint of malaise, right flank pain and dysuria. He is status post uncomplicated right ESWL with placement of right ureteral stent by Dr. Khoa Miller on 08/22/2022. He was seen in the Urology Clinic on 09/18/2022. He did have some complaints of dysuria. Urine culture showed no growth. Stent removal was postponed at that time due to concern for possible developing UTI. The patient has had serial KUB imaging preop and postoperatively in has demonstrated clearance of most of the stone burden. CT KUB 09/25/2022 demonstrated right pyelocaliectasis with a few punctate remaining nonobstructing calculi. The radiologist review as well as my own shows no significant concern for stones along the length of the stent. Urinalysis is nitrite positive with occasional bacteria and culture is pending. Due to current situation with sterilization of endoscopic and open surgical equipment, necessary endoscopic equipment was sent out side for sterilization. Meds Home Medications and Allergies Home Medications Medication Instructions Recorded Confirmed Type tamsulosin 0.4 mg capsule 0.8 mg PO DAILY Lower urinary 07/04/22 09/25/22 Rx tract symptoms #60 caps phenazopyridine 200 mg tablet 200 mg PO TID PRN pain #30 tabs 09/05/22 09/25/22 Rx (Pyridium) Allergies Allergy/AdvReac Type Severity Reaction Status Date / Time No Known Drug Allergies Allergy Verified 09/18/22 14:40 Review of Systems Review of Systems ROS: Yes All systems reviewed with the patient and are negative except as otherwise documented Exam Vital Signs (past 8 hours): - 09/26/22 05:05 09/26/22 06:43 Temperature 97.5 F L 98.1 F Pulse Rate 64 78 Respiratory Rate 18 16 Blood Pressure 136/77 160/90 H Pulse Oximetry 94 95 Oxygen Delivery Method Room Air Oxygen Flow Rate 0 Oxygen Delivery Method Room Air Oxygen Flow Rate 0 Narrative Exam Narrative: Well-developed, moderately over nourished middle-aged adult male in no acute distress well-developed, moderately over nourished middle-aged white male in no current distress. Head/neck-sclera clear pupils are round and equal. Chest-equal and unlabored expansion bilaterally. Heart normal sinus rhythm. Objective Labs 09/26/22 04:47 09/26/22 04:47 Labs: Laboratory Results - last 24 hr 09/25/22 09/25/22 09/25/22 07:20 07:20 07:20 WBC 8.0 RBC 4.29 L Hgb 12.9 L Hct 38.3 L MCV 89.4 MCH 30.1 MCHC 33.7 RDW 13.5 Plt Count 290 Neut % (Auto) 65.9 Lymph % (Auto) 19.9 L [place] % (Auto) 9.4 Eos % (Auto) 3.6 Baso % (Auto) 1.2 Neut # (Auto) 5300 Lymph # (Auto) 1600 [place] # (Auto) 800 Eos # (Auto) 300 Baso # (Auto) 100 Sodium 137 Potassium 3.5 Chloride 103 Carbon Dioxide 29 BUN 18 Creatinine 0.98 Estimated GFR > 60 BUN/Creatinine Ratio 18.4 Glucose 104 H Calcium 8.6 Magnesium 2.2 Urine Color Urine Appearance Urine pH Ur Specific [place] Urine Protein Urine Glucose (UA) Urine Ketones Urine Occult Blood Urine Nitrate Urine Bilirubin Urine Urobilinogen Ur Leukocyte Esterase Urine RBC Urine WBC Amorphous [place] Urine Bacteria Ur Culture Indicated? SARS-CoV-2 (PCR) 09/25/22 09/25/22 09/26/22 09:32 11:21 04:47 WBC 5.7 RBC 3.71 L Hgb 11.4 L Hct 33.2 L MCV 89.6 MCH 30.8 MCHC 34.3 RDW 13.1 Plt Count 249 Neut % (Auto) 64.1 Lymph % (Auto) 21.6 L [place] % (Auto) 8.4 Eos % (Auto) 5.1 H Baso % (Auto) 0.8 Neut # (Auto) 3600 Lymph # (Auto) 1200 [place] # (Auto) 500 Eos # (Auto) 300 Baso # (Auto) 0 Sodium Potassium Chloride Carbon Dioxide BUN Creatinine Estimated GFR BUN/Creatinine Ratio Glucose Calcium Magnesium Urine Color [place] Urine Appearance Cloudy Urine pH 7.0 Ur Specific [place] 1.010 Urine Protein 3+ H Urine Glucose (UA) Trace H Urine Ketones Negative Urine Occult Blood 3+ H Urine Nitrate Positive H Urine Bilirubin Negative Urine Urobilinogen 4.0 H Ur Leukocyte Esterase 1+ H Urine RBC 10-30/hpf H Urine WBC 5-10/hpf H Amorphous Sediment 1+ Urine Bacteria Occasional (0-1) Ur Culture Indicated? Specimen cultured SARS-CoV-2 (PCR) Negative 09/26/22 04:47 WBC RBC Hgb Hct MCV MCH MCHC RDW Plt Count Neut % (Auto) Lymph % (Auto) [place] % (Auto) Eos % (Auto) Baso % (Auto) Neut # (Auto) Lymph # (Auto) [place] # (Auto) Eos # (Auto) Baso # (Auto) Sodium 136 L Potassium 3.6 Chloride 105 Carbon Dioxide 28 BUN 17 Creatinine 0.95 Estimated GFR > 60 BUN/Creatinine Ratio 17.9 Glucose 87 Calcium 8.2 L Magnesium Urine Color Urine Appearance Urine pH Ur Specific [place] Urine Protein Urine Glucose (UA) Urine Ketones Urine Occult Blood Urine Nitrate Urine Bilirubin Urine Urobilinogen Ur Leukocyte Esterase Urine RBC Urine WBC Amorphous [place] Urine Bacteria Ur Culture Indicated? SARS-CoV-2 (PCR) [facility] Medical History History of kidney stones Kidney stones Lower urinary tract symptoms Right renal stone Sleep apnea Ureteral calculus Surgical History History of lithotripsy (2011) History of ureter stent Family History Grandfather Cancer Social History marital status: number of children: 2 household members: spouse Tobacco & Substance Use Smoking Status: Former smoker alcohol intake: former Diet and Exercise Type(s) of exercise: walking frequency: 1-2 times per week Assessment & Plan Assessment & Plan narrative: Assessment: 1. Retained right ureteral stent. 2. Status post right extracorporeal shockwave lithotripsy. 3. UTI/right pyelonephritis. Plan: 1. Discussion and informed consent for cystoscopy, dilation of right ureterovesical junction, and right stent removal. Other options including right ureteral stent exchange was discussed given current challenges with having sterilized equipment readily available. My opinion assured with the patient is that with distal ureterovesical junction dilation any apparent residual fragments appears though they will readily pass rather than reintroduce a foreign body. 2. Await final urine culture and transition patient to appropriate oral prior to discharge. 3. Follow-up in the Urology Clinic with Dr. Miller at earliest available visit with SHARON following discharge. Time Spent With Patient Critical Care time: I spent a total of [] minutes of critical care time on this patient's care today; this time is exclusive of procedural time.
--- NOTE | 2022-09-26 07:49 | PM.PREOP ---
Pre-operative Note COVID-19 Criteria for continued procedure: Expected advancement of disease process, Possibility delay results in more complex future surgery or treatment, Continuing or worsening of significant or severe pain, Deterioration of the patient's condition or overall health, Delay expected to result in less-positive ultimate med/surg outcome and Non-surgical alternatives not available or appropriate per current SOC Interval Note History & Physical reviewed/Exam performed by Physician: Yes Changes to H&P: No
--- NOTE | 2022-09-26 08:06 | SUR.OPER ---
Lithotomy on padded OR bed, head on pillow, arms secured on padded arm boards at <90 degrees abduction. Legs secured in padded yellow fins stirrups. Pt positioned per direction and supervision of Dr Arias.
[2022-09-26] MEDS: IOPAMIDOL 30 ML VIAL INJ (08:12)
[2022-09-26] MEDS: ONDANSETRON 4 MG/2 ML INJ IV (09:10)
--- NOTE | 2022-09-26 09:10 | P.OP_ITS ---
Operative Date/Time/Diagnoses Date of procedure: 09/26/22 Time of procedure: 09:10 Pre-op diagnosis: 1. Retained and obstructed right ureteral stent. 2. UTI/right pyelonephritis. 3. Severe right renal colic. Post-op diagnosis: same Procedure & Clinicians Procedure: 1. Cystoscopy/removal right ureteral stent (22 modifier should be applied to this code due to complexity of procedure and length of time greater than 50% of expected). 2. Cystoscopy/right retrograde pyelogram. 3. Cystoscopy/right ureteral dilation. Same procedure as scheduled: Yes Indications: 1. Retained and obstructed right ureteral stent. 2. UTI/right pyelonephritis. 3. Severe right renal colic. Surgeon: Med Arias Click Yes if Unassisted: Yes Anesthesia Type: General Operative Notes Findings: 1. Urethra-normal caliber without annular stricture or lesion. 2. External sphincter coapted with normal overlying urothelium. 3. Prostate 4.5+ cm length with moderately obstructing lateral lobes and elevate d median bar. 4. Bladder-adequate visualization is compromised due to use of Pyridium. There was expected edema and erythema surrounding the right ureteral orifice. The indwelling right ureteral stent was encrusted with numerous adherent deposits evident. 5. Right ureter-per manipulation, dilation, and removal of the retained right ureteral stent there were numerous calcific fragments within the obstructive efflux and within clot from the obstructive efflux. 6. Numerous intraoperative still shots and cine imaging were obtained depicting events during the course of the operation. Closure Type: not applicable Specimen(s): other (Stone fragments from right ureter and kidney.) Estimated Blood Loss (mL): 3 Blood products transfused: none Procedure in detail: Patient was positioned in supine was administered general anesthesia. He was then repositioned semi-lithotomy the lower abdomen, genitalia, and groin were then prepped and draped in sterile fashion. The 22 Portuguese barrientos endoscope was then passed the lower urinary tract with the findings as described above. A foreign body grasper was then used to engage the distal coil was stent and both the stent and the scope were then withdrawn outside of the urethral meatus. Further attempts to withdraw the indwelling stent were met with resistance. Fluoroscopic imaging indicated a tight partial coil at the proximal end. Next, a 0.35 hybrid guidewire was advanced into the lumen of the retained stent and attempts to pass the wire through the lumen in an attempt to straighten the coil were unsuccessful due to luminal obstruction. A 0.35 hybrid guidewire was then advanced alongside the existing retained stent and advanced proximally. Multiple attempts to advance the wire proximal to the tight coil were unsuccessful. A 5 [place] pollock catheter was then advanced over the hybrid wire and under fluoroscopic guidance was advanced proximally. Again under fluoroscopic guidance attempts to advance the [place] catheter and the hybrid guidewire within were unsuccessful. An angled 0.35 hybrid guidewire was then selected and with persistent careful manipulation the wire was finally able to be advanced proximally and coiled in the superior pole of the right kidney. The 5 [place] pollock catheter was then advanced under fluoroscopic guidance proximally as well. Unfortunately the coil did not straighten adequately at this time. Five [place] pollock catheter was then withdrawn off the hybrid guidewire now the 15 [place] 6 cm balloon dilating catheter was advanced over the hybrid guidewire under fluoroscopic guidance and was positioned so that it straddled the area the coil. The balloon was inflated to 18 [place] for 5 minutes after which it was deflated and withdrawn a bit distal to the coil now the balloon was partially inflated and again was advanced over the wire under direct visualization and attempt to straighten or move the coil both proximally. Indeed there was evidence of partial straightening of the tight coil. Under fluoroscopic guidance another attempt to gently remove the retained stent was successful and the retained stent was removed in its entirety and discarded. Next, the balloon dilating catheter was brought distally and positioned across the right ureterovesical junction. The balloon was inflated to 18 atmospheres for 5 minutes. The findings are described in the above description of findings. The balloon dilating catheter was then deflated on both the wire and the balloon dilating catheter were removed. The bladder was then partially filled on 2 occasions to remove retained clot. The bladder was drained a final time before the endoscope was removed a final time. The patient was then repositioned in supine, was awakened, transferred to [facility], then transported recovery in stable condition. Complications: none Post-operative Condition: stable Disposition: PACU Plan for aftercare: Admit to hospitalist service.
[2022-09-26] MEDS: HYDROMORPHONE 2 MG INJ IV ×8 (09:11→09:57)
[2022-09-26] MEDS: FUROSEMIDE 20 MG/2 ML VIAL IV (09:18)
[2022-09-26] MEDS: OXYCODONE IR 5 MG TABLET PO ×2 (09:25→17:35)
[2022-09-26] MEDS: hydrOXYzine 50 MG/ML INJ 25 MG IM (09:51)
[2022-09-26] MEDS: METOCLOPRAMIDE 10 MG/2 ML INJ IV (10:38)
[2022-09-26] MEDS: MORPHINE 2 MG/ML INJ IV ×2 (10:38→14:13)
--- NOTE | 2022-09-26 13:18 | PM.DS.1 ---
History of Present Illness History of Present Illness Date Patient Seen: 09/26/22 Time Patient Seen: 13:18 Chief complaint: KIDNEY STONE Narrative: Glynn Waddell is a 56yo M with PMH of recurrent kidney stones with current right-sided ureteral stent and recent lithotripsy with Dr. Miller on 08/22/22 who is presenting with right sided flank pain, hematuria, nausea and UTI. Patient has been set to have stent removed as outpatient with Dr. Miller but it kept getting delayed for various reasons. He then developed worsening right flank pain this morning with nausea but no vomiting so came to the ED. Dr. Arias urology consulted in ED and will take for stent removal in AM. UA showed pyuria so started on rocephin. Currently patient's pain is well-controlled with the IV toradol he has received. He denies NV, CP, SOB, abd pain or diarrhea. Discharge Providers Provider Date of admission: 09/25/22 16:05 Discharge Date: 09/26/22 Primary care physician: Ana Ponce PA-C Consults: 09/25/22 15:31 Consult to Urology Stat Comment: Consulting Provider: Med Arias Reason for consultation: stent removal Has provider been notified: Yes Discharge provider: Carlos Dumas DO Summary Hospital Course Discharge Diagnosis: # UTI in setting of right-sided ureteral stent with possible stent obstruction -CT abd/pelvis shows right stent with pelvocaliectasis suggesting obstruction -Dr. Arias to take to OR on 09/26 for stent removal -UA with pyuria, hematuria -continue rocephin 1g daily -NPO at 10pm -f/u urine culture -continue flomax, toradol and AZO prn # recurrent kidney stones -patient notes kidney stones since age 17 -no hypercalcemic on labs, but will check PTH to rule hyperparathyroidism Time Spent with Patient Time spent: Greater than 30 minutes Exam Vital Signs (past 8 hours): - 09/26/22 06:43 09/26/22 08:48 09/26/22 08:51 Temperature 98.1 F 98.8 F Pulse Rate 78 79 79 Respiratory Rate 16 15 12 Blood Pressure 160/90 H 155/82 H 164/92 H Pulse Oximetry 95 90 L 94 Oxygen Delivery Method Room Air Room Air Simple Mask Simple Mask Oxygen Flow Rate 10 14 09/26/22 10:00 09/26/22 10:12 09/26/22 10:15 Temperature 98.1 F 96.6 F L Pulse Rate 61 64 63 Respiratory Rate 15 14 16 Blood Pressure 161/97 H 152/89 H 168/81 H Pulse Oximetry 97 97 94 Oxygen Delivery Method Nasal Cannula Nasal Cannula Oxygen Flow Rate 3 3 0 09/26/22 10:45 09/26/22 08:58 09/26/22 09:13 Temperature 96.6 F L 97.8 F Pulse Rate 82 105 H 65 Respiratory Rate 17 14 11 L Blood Pressure 149/84 H 169/101 H 146/87 H Pulse Oximetry 92 93 97 Oxygen Delivery Method Simple Mask Nasal Cannula Oxygen Flow Rate 0 3 09/26/22 09:33 09/26/22 12:00 09/26/22 11:15 Temperature 96.9 F L 97.5 F L Pulse Rate 61 60 60 Respiratory Rate 16 17 18 Blood Pressure 167/91 H 146/73 H 146/73 H Pulse Oximetry 97 93 92 Oxygen Delivery Method Nasal Cannula Oxygen Flow Rate 3 0 0 09/26/22 12:15 Temperature 97.5 F L Pulse Rate 111 H Respiratory Rate 18 Blood Pressure 134/75 Pulse Oximetry 92 Oxygen Delivery Method Oxygen Flow Rate 0 Oxygen Delivery Method Nasal Cannula Oxygen Flow Rate 0 Narrative Exam Narrative: GEN: no acute distress HEENT: moist mucous membranes, PERRL NECK: trachea midline, no JVD CV: regular rate and rhythm, no murmurs PULM: clear bilaterally ABD: soft, nontender, protuberant, no organomegaly EXT: warm and well perfused with no edema NEURO: awake, alert, oriented, no focal deficits Objective Labs 09/26/22 04:47 09/26/22 04:47 Labs: Laboratory Results - last 24 hr 09/25/22 09/26/22 09/26/22 07:20 04:47 04:47 WBC 5.7 RBC 3.71 L Hgb 11.4 L Hct 33.2 L MCV 89.6 MCH 30.8 MCHC 34.3 RDW 13.1 Plt Count 249 Neut % (Auto) 64.1 Lymph % (Auto) 21.6 L [place] % (Auto) 8.4 Eos % (Auto) 5.1 H Baso % (Auto) 0.8 Neut # (Auto) 3600 Lymph # (Auto) 1200 [place] # (Auto) 500 Eos # (Auto) 300 Baso # (Auto) 0 Sodium 136 L Potassium 3.6 Chloride 105 Carbon Dioxide 28 BUN 17 Creatinine 0.95 Estimated GFR > 60 BUN/Creatinine Ratio 17.9 Glucose 87 Calcium 8.2 L Magnesium 2.2 PFSH Medical History History of kidney stones Kidney stones Lower urinary tract symptoms Right renal stone Sleep apnea Ureteral calculus Surgical History History of lithotripsy (2011) History of ureter stent Family History Grandfather Cancer Social History marital status: number of children: 2 household members: spouse Smoking Status: Former smoker alcohol intake: former Type(s) of exercise: walking frequency: 1-2 times per week Discharge Plan Discharge Plan Patient Disposition: Home Discharge orders & Medications Prescriptions: New oxycodone 5 mg Tablet 5 mg PO Q4HR PRN (Reason: Pain, Moderate (4-6)) Qty: 10 0RF ondansetron 4 mg tablet,disintegrating 4 mg PO Q6H PRN (Reason: nausea and vomiting) Qty: 20 0RF Continued tamsulosin 0.4 mg capsule 0.8 mg PO DAILY Qty: 60 12RF phenazopyridine [Pyridium] 200 mg tablet 200 mg PO TID PRN (Reason: pain) Qty: 30 1RF Follow up/Referrals: Ana Ponce PA-C [Primary Care Provider] - 2 Weeks Khoa Miller MD [Physician] - 1 Week Visit Report/Discharge Packet Stand Alone Forms: Patient Portal/API, Stroke Signs & Symptoms Discharge Data Primary Care Provider: Ana Ponce Quality VTE Deep Vein Thrombosis/Pulmonary Embolism Present on Admission: No
--- NOTE | 2022-09-26 13:34 | PM.PN.1 ---
Subjective Subjective Interval history: Patient having penile pain and NV following stent removal this morning. Also some pain in his low right back which is new. Exam Vital Signs (past 8 hours): - 09/26/22 06:43 09/26/22 08:48 09/26/22 08:51 Temperature 98.1 F 98.8 F Pulse Rate 78 79 79 Respiratory Rate 16 15 12 Blood Pressure 160/90 H 155/82 H 164/92 H Pulse Oximetry 95 90 L 94 Oxygen Delivery Method Room Air Room Air Simple Mask Simple Mask Oxygen Flow Rate 10 14 09/26/22 10:00 09/26/22 10:12 09/26/22 10:15 Temperature 98.1 F 96.6 F L Pulse Rate 61 64 63 Respiratory Rate 15 14 16 Blood Pressure 161/97 H 152/89 H 168/81 H Pulse Oximetry 97 97 94 Oxygen Delivery Method Nasal Cannula Nasal Cannula Oxygen Flow Rate 3 3 0 09/26/22 10:45 09/26/22 08:58 09/26/22 09:13 Temperature 96.6 F L 97.8 F Pulse Rate 82 105 H 65 Respiratory Rate 17 14 11 L Blood Pressure 149/84 H 169/101 H 146/87 H Pulse Oximetry 92 93 97 Oxygen Delivery Method Simple Mask Nasal Cannula Oxygen Flow Rate 0 3 09/26/22 09:33 09/26/22 12:00 09/26/22 11:15 Temperature 96.9 F L 97.5 F L Pulse Rate 61 60 60 Respiratory Rate 16 17 18 Blood Pressure 167/91 H 146/73 H 146/73 H Pulse Oximetry 97 93 92 Oxygen Delivery Method Nasal Cannula Oxygen Flow Rate 3 0 0 09/26/22 12:15 Temperature 97.5 F L Pulse Rate 111 H Respiratory Rate 18 Blood Pressure 134/75 Pulse Oximetry 92 Oxygen Delivery Method Oxygen Flow Rate 0 Oxygen Delivery Method Nasal Cannula Oxygen Flow Rate 0 Narrative Exam Narrative: GEN: pale, appears in pain HEENT: moist mucous membranes, PERRL NECK: trachea midline, no JVD CV: regular rate and rhythm, no murmurs PULM: clear bilaterally BACK: tenderness to palpation of right low back ABD: soft, nontender, protuberant, no organomegaly EXT: warm and well perfused with no edema NEURO: awake, alert, oriented, no focal deficits Objective Labs 09/26/22 04:47 09/26/22 04:47 Labs: Laboratory Results - last 24 hr 09/25/22 09/26/22 09/26/22 07:20 04:47 04:47 WBC 5.7 RBC 3.71 L Hgb 11.4 L Hct 33.2 L MCV 89.6 MCH 30.8 MCHC 34.3 RDW 13.1 Plt Count 249 Neut % (Auto) 64.1 Lymph % (Auto) 21.6 L [place] % (Auto) 8.4 Eos % (Auto) 5.1 H Baso % (Auto) 0.8 Neut # (Auto) 3600 Lymph # (Auto) 1200 [place] # (Auto) 500 Eos # (Auto) 300 Baso # (Auto) 0 Sodium 136 L Potassium 3.6 Chloride 105 Carbon Dioxide 28 BUN 17 Creatinine 0.95 Estimated GFR > 60 BUN/Creatinine Ratio 17.9 Glucose 87 Calcium 8.2 L Magnesium 2.2 PFSH Medical History History of kidney stones Kidney stones Lower urinary tract symptoms Right renal stone Sleep apnea Ureteral calculus Surgical History History of lithotripsy (2011) History of ureter stent Family History Grandfather Cancer Social History marital status: number of children: 2 household members: spouse Smoking Status: Former smoker alcohol intake: former Type(s) of exercise: walking frequency: 1-2 times per week Assessment & Plan Assessment & Plan narrative: # right-sided ureteral stent with obstruction -CT abd/pelvis shows right stent with pelvocaliectasis suggesting obstruction -Dr. Arias took to OR on 09/26 for stent removal which was caked in sediment -urine culture neg, stopped abx -continue morphine, zofran and reglan PRN # recurrent kidney stones -patient notes kidney stones since age 17 -no hypercalcemic on labs, but will check PTH to rule hyperparathyroidism Code status is full code. COVID negative. DVT prophylaxis with SCDs. Proxy is spouse Samantha. Dispo: Home on 09/27. Time Spent With Patient Critical Care time: I spent a total of [] minutes of critical care time on this patient's care today; this time is exclusive of procedural time. Quality VTE Deep Vein Thrombosis/Pulmonary Embolism Present on Admission: No
--- NOTE | 2022-09-26 14:16 | CM.DANOTE ---
Patient is a 56 yo male who was admitted on 09/25/22 for Kidney Stone. Pt has [employer] for insurance and his PCP is Ana Ponce. EMR was reviewed. Per MD, pt recently had stent placement by Urologist for recurrent kidney stones and was to have stent removed outpt but was rescheduled and then pt began having increased pain and discomfort. Urologist did stent removal in the OR with sediment surrounding and anticipated possible discharge today. Per MD, pt with some ongoing pain and n/v since stent removal and not yet medically stable for d/c yet today but anticipate likely tomorrow. SW met briefly bedside with pt and explained role and he confirms he lives with his spouse in [place] and is independent at baseline and works and drives. Pt states he has been getting kidney stones since age 17. Pt denies any hx of HH or SNF and does not anticipate any needs at d/c and preference is home via spouse POV tomorrow if stable. Plan: SW to follow for plan of likely d/c home with spouse assist tomorrow if medically stable and to follow for any further identified discharge planning needs. DG Moralez Discharge Planning/Care Management CM Discharge Assessment Start: 09/26/22 14:11 Freq: Status: Active Protocol: Document 09/26/22 14:11 BF (Rec: 09/26/22 14:16 BF [id number]) Discharge Planning Assessment Assigned Store Detective DG Roth DPOA/Assigned Designee Name spouse Samantha Contact Information [phone] Advance Directives? No Advance Directives on File No History Provided By Patient,Medical Record Has Patient been admitted in last 30 No days? Prior Living Arrangements House Household Members spouse Type of transporation used prior to Drives own vehicle admit Independent with ADL's Yes Is patient alert and oriented? Yes Caregiver for Another No Barriers to Discharge No Discharge Plan Home Transportation Arrangement Spouse to transport Referrals Initiated None needed Whiteboard Updated in Patient Room with Yes name and ext. # of Store Detective Review Status In Process Please Provide Date Initial DC 09/26/22 Assessment Was Performed Next Review Type Continued Stay Review
[2022-09-26] MEDS: ACETAMINOPHEN 325 MG TABLET 650 MG PO (17:34)
[2022-09-26] MEDS: OXYCODONE IR 10 MG TABLET PO (21:48)
[2022-09-27 01:55] VITALS: BP 114/65; PULSE 58; RESP 20; TEMP 36.1; O2SAT 91
[2022-09-27] MEDS: ACETAMINOPHEN 325 MG TABLET 650 MG PO ×2 (06:15→15:45)
[2022-09-27] MEDS: OXYCODONE IR 10 MG TABLET PO ×2 (06:16→15:06)
[2022-09-27 06:27] LABS: Add Manual Diff / Slide Review NO; Basophils Absolute Auto 0 /uL (0-100); Basophils Percent Auto 0.1 % (0-2); Eosinophils Absolute Auto 0 /uL (0-450); Hematocrit 33.9 % (41-53); Hemoglobin 11.5 g/dL (13.5-17.5); Lymphocytes Absolute Auto 900 /uL (1100-4500); Lymphocytes Percent Auto 4.7 % (25-40); Mean Corpuscular HGB Conc 33.8 % (30-36); Mean Corpuscular Hemoglobin 30.2 PG (26-34); Mean Corpuscular Volume 89.4 fL (80-100); Monocytes Absolute Auto 700 /uL (0-900); Monocytes Percent Auto 3.8 % (3-14); Neutrophils Absolute Auto 16900 /uL (1500-7000); Neutrophils Percent Auto 91.4 % (50-75); Platelet Count 315 X10^3/uL (150-400); Red Blood Cell Count 3.79 X10^6/uL (4.5-5.9); Red Cell Distribution Width 13.4 % (11.6-14.8); White Blood Cell Count 18.5 X10^3/uL (4.5-11.0)
[2022-09-27 06:57] LABS: BUN Creatinine Ratio 13.2 (6-22); Blood Urea Nitrogen 20 mg/dL (9-20); Calcium 8.9 mg/dL (8.4-10.2); Carbon Dioxide 25 mmol/L (22-32); Chloride 101 mmol/L (98-107); Estimated Glomerular Filt Rate 53 mL/min (>60); Glucose 125 mg/dL (70-100); HEMOLYSIS < 15 (0-50); Sodium 135 mmol/L (137-145)
--- NOTE | 2022-09-27 08:02 | DI.US.S_ITS ---
PROCEDURE: US RENAL COMPLETE INDICATIONS: s/p stent removal now w/ flank pain, HEBERT TECHNIQUE: Real-time scanning was performed of the kidneys and bladder, with image documentation. COMPARISON: None. FINDINGS: Kidneys: Kidneys are normal in size. Right kidney measures 12.1 cm long; left kidney measures 10.0 cm long. Right renal cortical thickness is 1.4 cm; left renal cortical thickness is 2.0 cm. 1.5 cm stone is seen in midpole of right kidney. Additional tiny punctate calcifications are seen in upper and lower pole of right kidney. Mild right-sided hydronephrosis is seen. No left-sided hydronephrosis. Multiple punctate left renal calculi are seen. No solid appearing renal lesion. Bladder: Pre-void bladder volume is 67.7 mL. Pre-void images demonstrate no intraluminal masses or stones. On pre-void images, bilateral ureteral jets are noted with color Doppler interrogation. (Of note, ureteral jets may not be detectable in up to 25% of cases due to insufficient differences in specific gravity between ureteral and bladder urine). Miscellaneous: No free pelvic fluid. IMPRESSION: 1. Bilateral renal calculi as described above. Mild right-sided hydronephrosis. No solid appearing renal lesion. No left-sided hydronephrosis. 2. No gross abnormality is seen in partially distended urinary bladder. Dictated by: Benjamin Duarte M.D. on 09/27/2022 at 11:14 Approved by: Benjamin Duarte M.D. on 09/27/2022 at 11:20
[2022-09-27 09:00] VITALS: BP 123/72; PULSE 63; RESP 16; TEMP 37.2; O2SAT 95
[2022-09-27] MEDS: polyethylene glycoL 3350 17 GM POWD.PACK PO (09:03)
--- NOTE | 2022-09-27 10:25 | DI.RAD.S_ITS ---
PROCEDURE: XR CHEST 1V INDICATIONS: pleuritic pain TECHNIQUE: One view of the chest was acquired. COMPARISON: None. FINDINGS: Surgical changes and devices: None. Lungs and pleura: Lungs are clear. No pleural effusions or pneumothorax. Mediastinum: Mediastinal contours appear normal. Heart size is mildly enlarged. Bones and chest wall: No suspicious bony lesions. Overlying soft tissues appear unremarkable. IMPRESSION: No acute cardiopulmonary pathology. Dictated by: Benjamin Duarte M.D. on 09/27/2022 at 10:47 Approved by: Benjamin Duarte M.D. on 09/27/2022 at 10:48
--- NOTE | 2022-09-27 11:29 | DI.CT.S_ITS ---
PROCEDURE: CT KIDNEY URETER BLADDER (KUB) INDICATIONS: mild right hydro on renal US TECHNIQUE: Axial sections were acquired from the lung bases to the pubic symphysis. Coronal and sagittal reformats were performed. For radiation dose reduction, the following was used: automated exposure control, adjustment of mA and/or kV according to patient size. COMPARISON: [facility], US, US RENAL COMPLETE, 09/27/2022, 9:18. [facility], CT, CT KIDNEY URETER BLADDER (KUB), 09/25/2022, 7:35. FINDINGS: Image quality: Excellent. Lung bases: Small right calcified granuloma. No pleural effusion. Heart: No significant findings. URINARY: Right Kidney: Mild hydronephrosis, not significantly changed. Small nonobstructing right kidney stone measuring 0.3 cm and 0.4 cm. There is low-density fluid tracking along Gerota's fascia. Right Ureter: Obstructing calculus at the distal right ureter near the UVJ measuring 0.4 cm. Possible 2nd punctate stone at this site. There is a punctate stone in the mid right ureter measuring 0.2 cm, (4/36). There is trace fluid tracking along the right ureter. Right ureteral stent has been removed. Left Kidney: No stones or hydronephrosis. Left Ureter: No hydroureter. There is trace fluid at the left pelvic brim. Bladder: Bladder is only partially distended. Small focus of gas in the urinary bladder. No bladder stone. ABDOMEN: Liver: Small hypodensities likely benign cysts are unchanged. Gallbladder: Distended. Biliary ducts: Unremarkable. Pancreas: Unremarkable. Spleen: Small calcified granulomas. Adrenal Glands: No nodule. Stomach and Bowel: The stomach is not distended. No small bowel obstruction. Diverticulosis. Nodular thickening at the inferior rectum 6 o'clock measure 1.4 cm, (2/87). There is minimal increased density. Peritoneum: No gross pneumoperitoneum. Small amount of fluid tracking in the right pericolic gutter, new. Ventral Wall: Fat containing umbilical hernia. Abdominal Nodes: No enlarged retroperitoneal or mesenteric lymph nodes. Vessels: Aorta and inferior vena cava are normal in size. Mild calcified plaque. PELVIS: Pelvic Organs: Unremarkable. Pelvic Nodes: Unremarkable. Miscellaneous: No inguinal hernias are seen. Bones: No suspicious lesion. IMPRESSION: 1. New small volume of low-density fluid adjacent to the right ureter and kidney. Right ureteral stent has been removed. 2. Mild right hydronephrosis is not significantly changed. 3. Small right ureteral stones. Largest measuring 0.4 cm near the UVJ. 4. Small nonobstructing right kidney stones. 5. Nodular thickening at the inferior rectum measuring 1.4 cm. This could represent a small neoplasm. Recommend clinical correlation. Recommend correlation with endoscopy if not recently performed. Dictated by: Adam Newsome M.D. on 09/27/2022 at 11:51 Approved by: Adam Newsome M.D. on 09/27/2022 at 12:12
[2022-09-27] MEDS: cefTRIAXone 1,000 MG in SODIUM CHLORIDE 0.9% 100 ML 200 MG IV (12:00)
[2022-09-27] MEDS: SODIUM CHLORIDE 0.9% 1,000 ML 125 ML IV ×2 (12:00→21:08)
--- NOTE | 2022-09-27 12:48 | PM.PN.1 ---
Subjective Subjective Date Patient Seen: 09/27/22 Time Patient Seen: 12:48 Interval history: Patient is a 56-year-old gentleman postoperative day 2 status post cystoscopy and difficult removal of right obstructed ureteral stent. I have not seen the patient today in person at this point but have been in close telephonic discussions with Dr. Dumas and have obtained CT KUB. Patient's discharge was postponed due to ongoing stone, stent, and procedural related pain. Interval creatinine has risen to 1.5. Interval WBC is risen to 18,000. He remains afebrile. CT KUB demonstrates mild, expected perinephric and periureteral edema and mild hydronephrosis not appreciably different than preprocedural. There remain to nonobstructing intrarenal fragments measuring up to 4 mm. There is a 2 mm fragment identified in the mid right ureter. More distally there 2 fragments in the vicinity of the right ureterovesical junction measuring up to 4 mm. Of note: The right ureterovesical junction was dilated to 15 [place] at time of intervention for right ureteral stent removal. Exam Vital Signs (past 8 hours): - 09/27/22 09:00 Temperature 98.9 F Pulse Rate 63 Respiratory Rate 16 Blood Pressure 123/72 Pulse Oximetry 95 Oxygen Delivery Method Nasal Cannula Oxygen Flow Rate 0 Narrative Exam Narrative: Not performed. Objective Labs 09/27/22 05:33 09/27/22 05:33 Labs: Laboratory Results - last 24 hr 09/27/22 09/27/22 05:33 05:33 WBC 18.5 H D RBC 3.79 L Hgb 11.5 L Hct 33.9 L MCV 89.4 MCH 30.2 MCHC 33.8 RDW 13.4 Plt Count 315 Neut % (Auto) 91.4 H D Lymph % (Auto) 4.7 L [place] % (Auto) 3.8 Eos % (Auto) 0.0 L Baso % (Auto) 0.1 Neut # (Auto) 76343 H Lymph # (Auto) 900 L [place] # (Auto) 700 Eos # (Auto) 0 Baso # (Auto) 0 Sodium 135 L Potassium 4.0 Chloride 101 Carbon Dioxide 25 BUN 20 Creatinine 1.52 H Estimated GFR 53 L BUN/Creatinine Ratio 13.2 Glucose 125 H Calcium 8.9 PFSH Medical History (Updated 09/27/22 @ 12:50 by Med Arias MD) History of kidney stones Kidney stones Lower urinary tract symptoms Renal colic on right side Right renal stone Right ureteral calculus Sleep apnea Ureteral calculus Surgical History History of lithotripsy (2011) History of ureter stent Family History Grandfather Cancer Social History marital status: number of children: 2 household members: spouse Smoking Status: Former smoker alcohol intake: former Type(s) of exercise: walking frequency: 1-2 times per week Assessment & Plan Assessment & Plan narrative: Assessment: 1. Postoperative day 2 status post cystoscopy and difficult removal of obstructed right ureteral stent. Patient has had some ongoing pain best explained by retained stone fragment at right ureterovesical junction. Options of return to OR for fragment removal with or without stenting verses observation discussed. Plan: 1. Supportive measures for clinical symptoms of post interventional pain and presence of 4 mm distal fragment. 2. Consider return to OR for right ureteral stent placement with or without fragment removal-near future depending upon patient's clinical course. Time Spent With Patient Critical Care time: I spent a total of [] minutes of critical care time on this patient's care today; this time is exclusive of procedural time. Quality VTE Deep Vein Thrombosis/Pulmonary Embolism Present on Admission: No
[2022-09-27 12:55] LABS: Appearance Urine UA CLEAR; Bilirubin Urine UA NEGATIVE (NEGATIVE); Color Urine UA YELLOW; Glucose Urine UA NEGATIVE (Negative); Ketones Urine UA NEGATIVE (NEGATIVE); Leukocyte Esterase Urine UA NEGATIVE (NEGATIVE); Nitrite Urine UA NEGATIVE (Negative); Occult Blood Urine UA 2+ (Negative); Protein Urine UA NEGATIVE (Negative); Specific Gravity Urine UA <=1.005 (1.000-1.035); Urobilinogen Urine UA 0.2 E.U./dL (0.2)
[2022-09-27 13:16] LABS: RBC Urine 0-1/HPF (0-5/HPF); WBC Urine None Seen (0-5/HPF)
[2022-09-27 13:17] LABS: Bacteria Urine Occasional (0-1); Culture Indicated Urine Cult Not Indicated; Squamous Epithelial Cell Urine None Seen (0-5/HPF)
[2022-09-27 16:43] VITALS: BP 122/63; PULSE 76; RESP 17; TEMP 37; O2SAT 95
--- NOTE | 2022-09-27 17:03 | PM.PN.1 ---
Subjective Subjective Interval history: Patient having continued right flank pain. CT KUB shows mild hydro and 0.4cm stone in mid-ureter. WBC jumped to 18 to started on rocephin. Exam Vital Signs (past 8 hours): - 09/27/22 16:43 Temperature 98.6 F Pulse Rate 76 Respiratory Rate 17 Blood Pressure 122/63 Pulse Oximetry 95 Oxygen Flow Rate 0 Oxygen Delivery Method Nasal Cannula Oxygen Flow Rate 0 Narrative Exam Narrative: GEN: appears in pain HEENT: moist mucous membranes, PERRL NECK: trachea midline, no JVD CV: regular rate and rhythm, no murmurs PULM: clear bilaterally BACK: tenderness to palpation of right low back ABD: soft, nontender, protuberant, no organomegaly EXT: warm and well perfused with no edema NEURO: awake, alert, oriented, no focal deficits Objective Labs 09/27/22 05:33 09/27/22 05:33 Labs: Laboratory Results - last 24 hr 09/27/22 09/27/22 09/27/22 05:33 05:33 12:37 WBC 18.5 H D RBC 3.79 L Hgb 11.5 L Hct 33.9 L MCV 89.4 MCH 30.2 MCHC 33.8 RDW 13.4 Plt Count 315 Neut % (Auto) 91.4 H D Lymph % (Auto) 4.7 L [place] % (Auto) 3.8 Eos % (Auto) 0.0 L Baso % (Auto) 0.1 Neut # (Auto) 05166 H Lymph # (Auto) 900 L [place] # (Auto) 700 Eos # (Auto) 0 Baso # (Auto) 0 Sodium 135 L Potassium 4.0 Chloride 101 Carbon Dioxide 25 BUN 20 Creatinine 1.52 H Estimated GFR 53 L BUN/Creatinine Ratio 13.2 Glucose 125 H Calcium 8.9 Urine Color Yellow Urine Appearance Clear Urine pH 6.0 Ur Specific [place] <=1.005 Urine Protein Negative Urine Glucose (UA) Negative Urine Ketones Negative Urine Occult Blood 2+ H Urine Nitrate Negative Urine Bilirubin Negative Urine Urobilinogen 0.2 Ur Leukocyte Esterase Negative Urine RBC 0-1/hpf D Urine WBC None seen Ur Squamous Epith Cells None seen Urine Bacteria Occasional (0-1) Ur Culture Indicated? Cult not indicated PFSH Medical History (Updated 09/27/22 @ 12:50 by Med Arias MD) History of kidney stones Kidney stones Lower urinary tract symptoms Renal colic on right side Right renal stone Right ureteral calculus Sleep apnea Ureteral calculus Surgical History History of lithotripsy (2011) History of ureter stent Family History Grandfather Cancer Social History marital status: number of children: 2 household members: spouse Smoking Status: Former smoker alcohol intake: former Type(s) of exercise: walking frequency: 1-2 times per week Assessment & Plan Assessment & Plan narrative: # right-sided ureteral stent with obstruction s/p stent removal -CT abd/pelvis shows right stent with pelvocaliectasis suggesting obstruction -Dr. Arias took to OR on 09/26 for stent removal which was caked in sediment -continue morphine, zofran and reglan PRN -repeat CT KUB on 09/27 showed 0.4cm stone in mid-right ureter -continue IVF, flomax and toradol to hopefully pass stone -Dr. Arias urology following and will replace stent if needed # rectal wall thickening -noted incidentally on CT, suspicious for neoplasm -patient has never had colonoscopy -spoke with him about scope and he will arrange as outpatient # leukocytosis -possible demargination, but will start rocephin to be safe -UA negative -consider stopping abx if morning procal negative # recurrent kidney stones -patient notes kidney stones since age 17 -no hypercalcemic on labs, but will check PTH to rule hyperparathyroidism Code status is full code. COVID negative. DVT prophylaxis with SCDs. Proxy is spouse Samantha. Dispo: Home in 1-2 days. Time Spent With Patient Critical Care time: I spent a total of [] minutes of critical care time on this patient's care today; this time is exclusive of procedural time. Quality VTE Deep Vein Thrombosis/Pulmonary Embolism Present on Admission: No
[2022-09-27] MEDS: TAMSULOSIN 0.4 MG CAPSULE 0.8 MG PO (17:46)
[2022-09-27] MEDS: BISACODYL 5 MG TABLET 10 MG PO (17:46)
[2022-09-27] MEDS: OXYCODONE IR 5 MG TABLET PO (17:46)
[2022-09-27] MEDS: KETOROLAC 30 MG/ML VIAL IV ×2 (17:46→22:25)
[2022-09-27 19:25] VITALS: BP 128/67; PULSE 67; RESP 17; TEMP 37.2; O2SAT 94
[2022-09-27] MEDS: CALCIUM CARBONATE 500 MG TAB PO (21:08)
[2022-09-28] MEDS: OXYCODONE IR 5 MG TABLET PO (02:40)
[2022-09-28] MEDS: ACETAMINOPHEN 325 MG TABLET 650 MG PO (02:42)
[2022-09-28] MEDS: KETOROLAC 30 MG/ML VIAL IV (04:40)
[2022-09-28] MEDS: SODIUM CHLORIDE 0.9% FLUSH 10 ML IV (04:52)
[2022-09-28 05:42] LABS: Add Manual Diff / Slide Review NO; Basophils Absolute Auto 0 /uL (0-100); Basophils Percent Auto 0.2 % (0-2); Eosinophils Absolute Auto 0 /uL (0-450); Eosinophils Percent Auto 0.2 % (2-4); Hematocrit 29.8 % (41-53); Lymphocytes Absolute Auto 1400 /uL (1100-4500); Lymphocytes Percent Auto 10.4 % (25-40); Mean Corpuscular HGB Conc 33.5 % (30-36); Mean Corpuscular Hemoglobin 30.1 PG (26-34); Mean Corpuscular Volume 89.8 fL (80-100); Monocytes Absolute Auto 1200 /uL (0-900); Monocytes Percent Auto 9.2 % (3-14); Neutrophils Absolute Auto 10800 /uL (1500-7000); Platelet Count 242 X10^3/uL (150-400); Red Blood Cell Count 3.32 X10^6/uL (4.5-5.9); Red Cell Distribution Width 13.7 % (11.6-14.8); White Blood Cell Count 13.5 X10^3/uL (4.5-11.0)
[2022-09-28 05:53] LABS: Blood Urea Nitrogen 20 mg/dL (9-20); Carbon Dioxide 26 mmol/L (22-32); Chloride 103 mmol/L (98-107); Estimated Glomerular Filt Rate 57 mL/min (>60); Glucose 96 mg/dL (70-100); HEMOLYSIS < 15 (0-50); Potassium 3.6 mmol/L (3.4-5.1); Sodium 135 mmol/L (137-145)
[2022-09-28 06:06] LABS: Procalcitonin 0.12 ng/mL (<0.5)
--- NOTE | 2022-09-28 06:38 | PC.NURSE ---
Kidney stones collected & sent to the lab. Will continue plan of care & monitor.
[2022-09-28 07:00] VITALS: BP 122/68; PULSE 73; RESP 15; TEMP 36.6; O2SAT 93
--- NOTE | 2022-09-28 08:10 | P.DS_ITS ---
History of Present Illness History of Present Illness Chief complaint: KIDNEY STONE Discharge Providers Provider Date of admission: 09/25/22 16:05 Discharge Date: 09/28/22 Primary care physician: Ana Ponce PA-C Consults: 09/25/22 15:31 Consult to Urology Stat Comment: Consulting Provider: Med Arias Reason for consultation: stent removal Has provider been notified: Yes Discharge provider: Demond Cochran MD Summary Hospital Course Discharge Diagnosis: Occlusion of Ureter Stent, removed. Renal colic. Hospital Course: Patient was admitted with flank pain and found to have evidence of an occluded ureter stent. This was removed. Urine cultures negative. He had post removal pain which improved overnight. Situation discussed with Urology on the AM of discharge. Time Spent with Patient Time spent: Greater than 30 minutes Exam Vital Signs (past 8 hours): Oxygen Delivery Method Nasal Cannula Oxygen Flow Rate 0 Narrative Exam Narrative: GEN: appears in pain HEENT: moist mucous membranes, PERRL NECK: trachea midline, no JVD CV: regular rate and rhythm, no murmurs PULM: clear bilaterally BACK: tenderness to palpation of right low back ABD: soft, nontender, protuberant, no organomegaly EXT: warm and well perfused with no edema NEURO: awake, alert, oriented, no focal deficits Objective Labs 09/28/22 05:00 09/28/22 05:00 Labs: Laboratory Results - last 24 hr 09/27/22 09/28/22 09/28/22 12:37 05:00 05:00 WBC 13.5 H RBC 3.32 L Hgb 10.0 L Hct 29.8 L MCV 89.8 MCH 30.1 MCHC 33.5 RDW 13.7 Plt Count 242 Neut % (Auto) 80.0 H Lymph % (Auto) 10.4 L [place] % (Auto) 9.2 Eos % (Auto) 0.2 L Baso % (Auto) 0.2 Neut # (Auto) 23155 H Lymph # (Auto) 1400 [place] # (Auto) 1200 H Eos # (Auto) 0 Baso # (Auto) 0 Sodium 135 L Potassium 3.6 Chloride 103 Carbon Dioxide 26 BUN 20 Creatinine 1.43 H Estimated GFR 57 L BUN/Creatinine Ratio 14.0 Glucose 96 Calcium 8.0 L Procalcitonin Urine Color Yellow Urine Appearance Clear Urine pH 6.0 Ur Specific [place] <=1.005 Urine Protein Negative Urine Glucose (UA) Negative Urine Ketones Negative Urine Occult Blood 2+ H Urine Nitrate Negative Urine Bilirubin Negative Urine Urobilinogen 0.2 Ur Leukocyte Esterase Negative Urine RBC 0-1/hpf D Urine WBC None seen Ur Squamous Epith Cells None seen Urine Bacteria Occasional (0-1) Ur Culture Indicated? Cult not indicated 09/28/22 05:00 WBC RBC Hgb Hct MCV MCH MCHC RDW Plt Count Neut % (Auto) Lymph % (Auto) [place] % (Auto) Eos % (Auto) Baso % (Auto) Neut # (Auto) Lymph # (Auto) [place] # (Auto) Eos # (Auto) Baso # (Auto) Sodium Potassium Chloride Carbon Dioxide BUN Creatinine Estimated GFR BUN/Creatinine Ratio Glucose Calcium Procalcitonin 0.12 Urine Color Urine Appearance Urine pH Ur Specific [place] Urine Protein Urine Glucose (UA) Urine Ketones Urine Occult Blood Urine Nitrate Urine Bilirubin Urine Urobilinogen Ur Leukocyte Esterase Urine RBC Urine WBC Ur Squamous Epith Cells Urine Bacteria Ur Culture Indicated? PFSH Medical History History of kidney stones Kidney stones Lower urinary tract symptoms Renal colic on right side Right renal stone Right ureteral calculus Sleep apnea Ureteral calculus Surgical History History of lithotripsy (2011) History of ureter stent Family History Grandfather Cancer Social History marital status: number of children: 2 household members: spouse Smoking Status: Former smoker alcohol intake: former Type(s) of exercise: walking frequency: 1-2 times per week Discharge Assessment & Plan Assessment and Plan Assessment: ? 09/27/22 09/27/22 09/27/22 ? 05:33 05:33 12:37 D B Assessment & Plan Assessment & Plan narrative: # right-sided ureteral stent with obstruction s/p stent removal -CT abd/pelvis shows right stent with pelvocaliectasis suggesting obstruction -Dr. Arias took to OR on 09/26 for stent removal which was caked in sediment -continue morphine, zofran and reglan PRN -repeat CT KUB on 09/27 showed 0.4cm stone in mid-right ureter -continue IVF, flomax and toradol to hopefully pass stone -Dr. Arias urology will see outpatient. # rectal wall thickening -noted incidentally on CT, suspicious for neoplasm -patient has never had colonoscopy -spoke with him about scope and he will arrange as outpatient # leukocytosis, improved. -possible demargination, but will start rocephin to be safe -UA negative -discharge without antibiotics. # recurrent kidney stones -patient notes kidney stones since age 17 -no hypercalcemic on labs, but will check PTH to rule hyperparathyroidism Discharge Plan Discharge Plan Patient Disposition: Home Provider Discharge Comment: Close follow up with Urology. Discharge orders & Medications Prescriptions: New oxycodone 5 mg Tablet 5 mg PO Q4HR PRN (Reason: Pain, Moderate (4-6)) Qty: 10 0RF ondansetron 4 mg tablet,disintegrating 4 mg PO Q6H PRN (Reason: nausea and vomiting) Qty: 20 0RF Continued tamsulosin 0.4 mg capsule 0.8 mg PO DAILY Qty: 60 12RF phenazopyridine [Pyridium] 200 mg tablet 200 mg PO TID PRN (Reason: pain) Qty: 30 1RF Medication counseling provided by Pharmacist: Yes Pharmacist Comment: student specialist Lee counseled patient. No questions. Follow up/Referrals: Ana Ponce PA-C [Primary Care Provider] - 2 Weeks Khoa Miller MD [Physician] - 1 Week Discharge Health Status Multidrug resistant organism: No MDRO Diet/Activity/Treatments Diet: Regular Skin/Wound/Dressing Care Report to your healthcare provider any signs of infection, such as:: chills, fever, night sweats and increased pain Visit Report/Discharge Packet Stand Alone Forms: Patient Portal/API Discharge Data Primary Care Provider: Ana Ponce Quality VTE Deep Vein Thrombosis/Pulmonary Embolism Present on Admission: No
[2022-09-28] MEDS: TAMSULOSIN 0.4 MG CAPSULE 0.8 MG PO (09:10)
--- NOTE | 2022-09-28 09:10 | P.PN_ITS ---
Subjective Subjective Date Patient Seen: 09/28/22 Time Patient Seen: 07:25 Interval history: Glynn is postoperative day 2 status post cystoscopy and difficult removal of obstructed and encrusted ureteral stent. He reports that last evening he passed the leading fragments followed by substantial sand and gravel on multiple voids. He had relatively immediate great relief from the renal colic he was experiencing. He is tolerating general diet. He is in great spirits. Exam Vital Signs (past 8 hours): - 09/28/22 07:00 Temperature 97.9 F Pulse Rate 73 Respiratory Rate 15 Blood Pressure 122/68 Pulse Oximetry 93 Oxygen Flow Rate 0 Oxygen Delivery Method Nasal Cannula Oxygen Flow Rate 0 Narrative Exam Narrative: He is sitting upright in bed and in no acute distress. Objective Labs 09/28/22 05:00 09/28/22 05:00 Labs: Laboratory Results - last 24 hr 09/27/22 09/28/22 09/28/22 12:37 05:00 05:00 WBC 13.5 H RBC 3.32 L Hgb 10.0 L Hct 29.8 L MCV 89.8 MCH 30.1 MCHC 33.5 RDW 13.7 Plt Count 242 Neut % (Auto) 80.0 H Lymph % (Auto) 10.4 L [place] % (Auto) 9.2 Eos % (Auto) 0.2 L Baso % (Auto) 0.2 Neut # (Auto) 19599 H Lymph # (Auto) 1400 [place] # (Auto) 1200 H Eos # (Auto) 0 Baso # (Auto) 0 Sodium 135 L Potassium 3.6 Chloride 103 Carbon Dioxide 26 BUN 20 Creatinine 1.43 H Estimated GFR 57 L BUN/Creatinine Ratio 14.0 Glucose 96 Calcium 8.0 L Procalcitonin Urine Color Yellow Urine Appearance Clear Urine pH 6.0 Ur Specific [place] <=1.005 Urine Protein Negative Urine Glucose (UA) Negative Urine Ketones Negative Urine Occult Blood 2+ H Urine Nitrate Negative Urine Bilirubin Negative Urine Urobilinogen 0.2 Ur Leukocyte Esterase Negative Urine RBC 0-1/hpf D Urine WBC None seen Ur Squamous Epith Cells None seen Urine Bacteria Occasional (0-1) Ur Culture Indicated? Cult not indicated 09/28/22 05:00 WBC RBC Hgb Hct MCV MCH MCHC RDW Plt Count Neut % (Auto) Lymph % (Auto) [place] % (Auto) Eos % (Auto) Baso % (Auto) Neut # (Auto) Lymph # (Auto) [place] # (Auto) Eos # (Auto) Baso # (Auto) Sodium Potassium Chloride Carbon Dioxide BUN Creatinine Estimated GFR BUN/Creatinine Ratio Glucose Calcium Procalcitonin 0.12 Urine Color Urine Appearance Urine pH Ur Specific [place] Urine Protein Urine Glucose (UA) Urine Ketones Urine Occult Blood Urine Nitrate Urine Bilirubin Urine Urobilinogen Ur Leukocyte Esterase Urine RBC Urine WBC Ur Squamous Epith Cells Urine Bacteria Ur Culture Indicated? [facility] Medical History History of kidney stones Kidney stones Lower urinary tract symptoms Renal colic on right side Right renal stone Right ureteral calculus Sleep apnea Ureteral calculus Surgical History History of lithotripsy (2011) History of ureter stent Family History Grandfather Cancer Social History marital status: number of children: 2 household members: spouse Smoking Status: Former smoker alcohol intake: former Type(s) of exercise: walking frequency: 1-2 times per week Assessment & Plan Assessment & Plan narrative: Assessment: 1. Postoperative day 2 status post difficult right ureteral stent removal- markedly improved. 2. I explained at length and in detail utilizing Medical illustrations of pertinent anatomy of the intraoperative findings and procedural steps taken on 09/25/2022. Plan: 1. Patient is stable for discharge from standpoint. 2. Follow-up in the Urology Clinic with Dr. Miller as previously arranged. Time Spent With Patient Critical Care time: I spent a total of [] minutes of critical care time on this patient's care today; this time is exclusive of procedural time. Quality VTE Deep Vein Thrombosis/Pulmonary Embolism Present on Admission: No
[2022-09-28 09:14] LABS: Calcium 8.6 mg/dL (8.7-10.2); Parathyroid Hormone, Intact 48 pg/mL (15-65)
--- NOTE | 2022-09-28 11:32 | PC.NURSE ---
Pt awake, denies discomfort. Up ad gladys in room. HL discontinued intact Orders for D/C received. Home instructions given w/understanding Pt escorted by staff to waiting vehicle in stable condition.
--- NOTE | 2022-09-28 12:00 | CM.DPNOTE ---
DC Note Patient discharged home today, back to functional baseline. Home w/close outpatient follow up recommended No identified needs from this CM team JW
[2022-10-02 15:08] LABS: Ca oxalate monohydr 100 % (.); Size 2x2 mm (.)
== END 2022-09-28 11:05 | disposition home or self-care (01) | DRG 660 ==
LOC: ED 15:47 → AC 16:06
PROVIDERS: Specialist; Admitting Provider Student in an Organized Health Care Education/Training Program; Emergency Provider Emergency Medicine; PCP Physician Assistant; Referring Provider Emergency Medicine; Visit Provider Student in an Organized Health Care Education/Training Program
PROC: 0T768DZ Dilation of Right Ureter with Intraluminal Device, Via Natural or Artificial Opening Endoscopic (ICD-10-PCS; principal; 2022-09-26 07:30)
DX: T83.193A Other mechanical complication of other urinary stent, initial encounter (principal); N13.8 Other obstructive and reflux uropathy; Z20.822 Contact with and (suspected) exposure to COVID-19; Z87.442 Personal history of urinary calculi; Z87.891 Personal history of nicotine dependence
CPT/HCPCS: 36415; 52315; 71045; 74018; 74176; 76000; 76770; 80048; 81001; 82310; 82365; 83735; 83970; 84145; 85025; 87086; 87635; 96365; 96375; 99232; 99233; 99284; C9803; J0696; J1100; J1170; J1885; J1940; J2270; J2405; J2704; J2765; J3010; J3410; Q9967

== ENCOUNTER → 2022-10-05 14:47 | Outpatient (CLI) | payer OTHER, SELFPAY ==
[2022-09-25 16:26] VITALS: BMI 32.5
[2022-10-05 16:01] LABS: Calcium 8.9 mg/dL (8.4-10.2); Phosphorous 3.5 mg/dL (2.5-4.5); Uric Acid 3.4 mg/dL (3.5-8.5)
[2022-10-08 10:34] LABS: Calcium 9.2 mg/dL (8.7-10.2); Parathyroid Hormone, Intact 54 pg/mL (15-65)
== END ==
PROVIDERS: PCP Physician Assistant; Referring Provider Urology; Visit Provider Urology
DX: Z98.890 Other specified postprocedural states (principal); Z87.442 Personal history of urinary calculi; N39.0 Urinary tract infection, site not specified; T83.192A Other mechanical complication of indwelling ureteral stent, initial encounter; R39.9 Unspecified symptoms and signs involving the genitourinary system; N20.0 Calculus of kidney
CPT/HCPCS: 36415; 51798; 81002; 82310; 83970; 84100; 84550

== ENCOUNTER 2023-06-25 09:38 | Day surgery (SDC) | payer OTHER, SELFPAY ==
[2022-09-25 16:26] VITALS: BMI 32.5
[2023-06-25 09:55] VITALS: BMI 35.7
[2023-06-25 10:05] VITALS: BP 134/78; PULSE 60; RESP 17; TEMP 36; O2SAT 98
[2023-06-25] MEDS: LACTATED RINGERS 1,000 ML 42 ML IV (10:08)
--- NOTE | 2023-06-25 10:30 | P.HP_ITS ---
History of Present Illness History of Present Illness Date Patient Seen: 06/25/23 Chief complaint: SDC Narrative: Screening colonoscopy with family history of colon cancer in a second-degree relative [facility] Medical History (Updated 02/02/23 @ 09:48 by Khoa Miller MD) Hyperoxaluria Calcium oxalate stones Renal colic on right side Right ureteral calculus Sleep apnea History of kidney stones Right renal stone Kidney stones Lower urinary tract symptoms Ureteral calculus Surgical History History of ureter stent History of lithotripsy (2011) Family History Grandfather Cancer Social History marital status: number of children: 2 household members: spouse Smoking Status: Former smoker alcohol intake: never Type(s) of exercise: walking frequency: 1-2 times per week Meds Home Medications and Allergies Home Medications Medication Instructions Recorded Confirmed Type losartan 25 mg tablet 25 mg PO DAILY 04/11/23 06/25/23 History Allergies Allergy/AdvReac Type Severity Reaction Status Date / Time No Known Drug Allergies Allergy Verified 06/25/23 09:44 Exam Vital Signs (past 8 hours): - 06/25/23 10:05 Temperature 96.8 F L Pulse Rate 60 Respiratory Rate 17 Blood Pressure 134/78 Pulse Oximetry 98 Oxygen Delivery Method Room Air Oxygen Delivery Method Room Air Narrative Exam Narrative: Oropharynx free of lesions Chest clear to auscultation percussion Cardiac exam reveals no S3 or murmur Assessment & Plan Assessment & Plan narrative: Family history of colon cancer in a grandfather need for screening colonoscopy. Risks, benefits, alternatives have been explained.
--- NOTE | 2023-06-25 10:31 | PM.OP.COLON ---
Operative Date/Time/Diagnoses Date of procedure: 06/25/23 Pre-op diagnosis: See indication and findings Procedure & Clinicians Study performed: Colonoscopy Indications: Family history of colon cancer in grandfather Surgeon: Gayla Lilly Procedure Notes Procedure in detail: After informed consent was obtained the patient was placed in left lateral decubitus position. The video colonoscope was introduced the rectum slowly advanced to the cecum. Preparation was good. On slow withdrawal mucosa was carefully examined. The scope was removed. The patient tolerated procedure well. Blood loss none Complications none Sedation mac Findings 1. [id number] sigmoid diverticulosis 2. Otherwise negative colonoscopy to cecum Patient should have follow-up colonoscopy in 7 years
[2023-06-25 10:54] VITALS: BP 110/77; PULSE 67; RESP 16; TEMP 36.6; O2SAT 91
[2023-06-25 10:58] VITALS: BP 117/79; PULSE 66; RESP 20; O2SAT 96
[2023-06-25 11:03] VITALS: BP 118/80; PULSE 59; RESP 20; TEMP 36.3; O2SAT 92
[2023-06-25 11:10] VITALS: BP 130/89; PULSE 67; RESP 15; O2SAT 96
== END 2023-06-25 10:25 | disposition home or self-care (01) ==
PROVIDERS: PCP Physician Assistant; Referring Provider Internal Medicine Gastroenterology; Visit Provider Internal Medicine Gastroenterology
PROC: 0DJD8ZZ Inspection of Lower Intestinal Tract, Via Natural or Artificial Opening Endoscopic (ICD-10-PCS; CPT 45378; principal; 2023-06-25 11:00)
DX: Z12.11 Encounter for screening for malignant neoplasm of colon (principal); K57.30 Diverticulosis of large intestine without perforation or abscess without bleeding
CPT/HCPCS: 45378

== ENCOUNTER → 2023-09-30 14:33 | Outpatient (CLI) | payer OTHER, SELFPAY ==
[2022-09-25 16:26] VITALS: BMI 32.5
--- NOTE | 2023-09-30 14:36 | DI.RAD.S_ITS ---
PROCEDURE: XR KUB INDICATIONS: Follow-up kidney stones TECHNIQUE: One view of the abdomen acquired. COMPARISON: [facility], CR, XR KUB, 09/13/2022, 12:07. FINDINGS: Surgical changes and devices: None. Bowel: Bowel gas pattern is normal. Large amount of fecal debris. Soft tissues: No suspicious abdominal calcifications. Visualized solid organ contours appear normal in size. Bowel gas obscures the kidneys. Bones: No suspicious bony lesions. IMPRESSION: Bowel contents obscures the kidneys. Cannot exclude kidney stones. Dictated by: Torres Wilson M.D. on 09/30/2023 at 19:29 Approved by: Torres Wilson M.D. on 09/30/2023 at 19:30
== END ==
PROVIDERS: PCP Physician Assistant; Referring Provider Urology; Visit Provider Urology
DX: N20.0 Calculus of kidney (principal)
CPT/HCPCS: 74018

== ENCOUNTER → 2024-03-26 09:11 | Outpatient (CLI) | payer OTHER, SELFPAY ==
[2023-10-04 08:20] VITALS: BMI 32.5
--- NOTE | 2024-03-26 09:15 | DI.RAD.S_ITS ---
PROCEDURE: XR KUB INDICATIONS: Kidney stones TECHNIQUE: One view of the abdomen acquired. COMPARISON: [facility], CR, XR KUB, 09/30/2023, 14:41. FINDINGS: Surgical changes and devices: None. Bowel: Bowel gas pattern is normal. Soft tissues: No suspicious abdominal calcifications. Visualized solid organ contours appear normal in size. Bones: No suspicious bony lesions. IMPRESSION: No definite calcified renal stone is identified. No evidence of bowel obstruction or gross free air. Dictated by: eBnjamin Duarte M.D. on 03/26/2024 at 13:19 Approved by: Benjamin Duarte M.D. on 03/26/2024 at 13:20
== END ==
PROVIDERS: PCP Physician Assistant; Referring Provider Urology; Visit Provider Urology
DX: N20.0 Calculus of kidney (principal)
CPT/HCPCS: 74018

== ENCOUNTER → 2024-09-23 16:45 | Outpatient (CLI) | payer OTHER, SELFPAY ==
[2023-10-04 08:20] VITALS: BMI 32.5
--- NOTE | 2024-09-23 16:46 | DI.RAD.S_ITS ---
PROCEDURE: XR KUB INDICATIONS: Kidney stones TECHNIQUE: One view of the abdomen acquired. COMPARISON: [facility], CR, XR KUB, 03/26/2024, 9:18. [facility], CR, XR KUB, 09/30/2023, 14:41. FINDINGS: Surgical changes and devices: None. Bowel: Bowel gas pattern is normal. Moderate stool burden. Soft tissues: No suspicious abdominal calcifications. Visualized solid organ contours appear normal in size. Bones: No suspicious bony lesions. IMPRESSION: No kidney stones are seen radiographically. Dictated by: Isaías Posey M.D. on 09/23/2024 at 17:14 Approved by: Isaías Posey M.D. on 09/23/2024 at 17:15
== END ==
PROVIDERS: PCP Physician Assistant; Referring Provider Urology; Visit Provider Urology
DX: N20.0 Calculus of kidney (principal)
CPT/HCPCS: 74018